=== PATIENT | male | born 1945 | race Caucasian/White ===

== ENCOUNTER 2016-06-16 08:21 | Outpatient (CLI) | payer MEDICARE, OTHER ==
[2016-06-16] VITALS (8 sets, daily range): BP systolic 120–144; BP diastolic 70–82
[~2016-06-16] VITALS: Ht 177.8 cm; Wt 96.2 kg
[~2016-06-16 08:21] MED LIST: ACET650T89 PO; ALEN35TA6 PO; ATORVASTATIN CA80 MG PO; CALC-431 PO; CHLO25TA PO; FINA5TAB4 PO; LEVO75TA5 PO; LISI-334 PO; [UNRECOGNIZED DRUG - CODE] PO
[2016-06-16] MEDS ORDERED: ASPI325T11 PO (08:49)
[2016-06-16] MEDS ORDERED: MULT1TAB6 PO (08:49)
[2016-06-16 08:50] LABS: BASO # 0.1 x10^3/uL (0.0-0.2); BASO % 1 % (0-3); EOS % 4 % (0-3); HEMATOCRIT 44.1 % (39.0-53.0); HEMOGLOBIN 14.6 g/dL (13.0-17.5); LYMPH # 1.7 x10^3/uL (1.0-4.8); LYMPH % 17 % (24-48); MEAN CORPUSCULAR HEMOGLOBIN 31 pg (25-35); MEAN CORPUSCULAR HGB CONC 33 g/dL (31-37); MEAN CORPUSCULAR VOLUME 92 fL (79-100); MONO % 8 % (0-9); NEUT % 71 % (31-73); PLATELET COUNT 267 x10^3/uL (140-400); RED BLOOD COUNT 4.79 x10^6/uL (4.30-5.70); RED CELL DISTRIBUTION WIDTH 13.9 % (11.5-14.5); WHITE BLOOD COUNT 9.7 x10^3/uL (4.0-11.0)
[2016-06-16] MEDS ORDERED: LIDOCAINE 1% / SOD BICARB 8.4% 20 ML VIAL. IJ ONE ×2 (08:50→10:00)
[2016-06-16 09:18] LABS: INR 1.1 (0.8-1.1); PROTHROMBIN TIME PATIENT 13.7 SEC (11.7-14.0)
[2016-06-16] MEDS ORDERED: FENTANYL PF 100 MCG/2 ML VIAL. ONE (09:29)
[2016-06-16] MEDS ORDERED: MIDAZOLAM HCL 2 MG/2 ML VIAL. ONE (09:29)
[2016-06-16] MEDS ORDERED: FENTANYL PF 100 MCG/2 ML VIAL. IV ONE (10:00)
[2016-06-16] MEDS ORDERED: MIDAZOLAM HCL 2 MG/2 ML VIAL. IV ONE (10:00)
--- NOTE | 2016-06-16 10:21 | PDOC ---
MODERATE SEDATION ASSESSMENT RISKS/ALTERNATIVES Risks/Alternatives Risks and alternatives of this type of sedation and procedure discussed with: RISK/ALTERNATIVES: Patient H & P ON CHART H & P H & P on chart and reviewed for co-morbid conditions and appropriate labs. H&P ON CHART: Yes STATUS PREG STATUS ASSESSED: N/A MEDS/ALLERGIES REVIEWED Meds/Allergies Reviewed Medications and Allergies including time and route of recently administered narcotics and sedatives. MEDS/ALLERGIES REVIEWED: Yes ASA RATING ASA RATING: II AIRWAY ASSESSMENT Airway Assessment Airway patency, oral function limitations, presence of caps, crowns, dentures, partials, and ability to extend neck assessed. AIRWAY ASSESSMENT: Yes MALLAMPATI SCORE MALLAMPATI SCORE: II PRE-SEDATION ASSESSMENT PRE-SEDATION ASSESSMENT: Yes SUSHIL BUTCHER MD Jun 16, 2016 10:21
--- NOTE | 2016-06-16 10:22 | PDOC1 ---
History and Physical Date of Procedure Date of Admission 06/16/16 Procedure Procedure Fluoro guided T11 vertebral body sclerotic lesion bx Indication Indication Densely sclerotic T11 vertebral body lesion---image guided bx requested by oncologist Past Medical History Past Medical History See Nursing Pre procedure PMH Past Surgical History Past Surgical History See Nursing Pre procedure PSH Current Medications Current Medications Current Medications Lidocaine/Sodium Bicarbonate (Buffered Lidocaine 1%) 20 ml STK-MED ONCE IJ ; Start 06/16/16 at 08:50; Stop 06/16/16 at 08:51; Status DC Fentanyl Citrate (Fentanyl 2ml Vial) 100 mcg STK-MED ONCE .ROUTE ; Start at 09:29; Stop 06/16/16 at 09:30; Status DC Midazolam HCl (Versed) 2 mg STK-MED ONCE .ROUTE ; Start 06/16/16 at 09:29; Stop 06/16/16 at 09:30; Status DC Lidocaine/Sodium Bicarbonate (Buffered Lidocaine 1%) 12 ml 1X ONCE IJ Last administered on 06/16/16 10:11; Start 06/16/16 at 10:00; Stop 06/16/16 at 10:01; Status DC Midazolam HCl (Versed) 2 mg 1X ONCE IV Last administered on 06/16/16 10:11; Start 06/16/16 at 10:00; Stop 06/16/16 at 10:01; Status DC Fentanyl Citrate (Fentanyl 2ml Vial) 100 mcg 1X ONCE IV Last administered on 10:12; Start 06/16/16 at 10:00; Stop 06/16/16 at 10:01; Status DC Active Scripts Active Reported Centrum Complete Multivit Tab (Multivitamin/Iron/Folic Acid) 1 Each Tablet 1 Each PO DAILY Aspirin Ec (Aspirin) 325 Mg Tablet.dr 1 Tab PO DAILY Vitamin C With Lissette Hips (Ascorbic Acid) 1,000 Mg Tablet 1,000 Mg PO DAILY Calcium 600 + Vit D 400 Caplet (Calcium Carbonate/Vitamin D3) 1 Each Tablet 1 Each PO BID Arthritis Pain (Acetaminophen) 650 Mg Tablet.er 650 Mg PO BID Chlorthalidone 25 Mg Tablet 25 Mg PO DAILY Finasteride 5 Mg Tablet 5 Mg PO DAILY Levothyroxine Sodium 75 Mcg Tablet 75 Mcg PO DAILYAC Alendronate Sodium 35 Mg Tablet 35 Mg PO WEEKLY Lisinopril 20 Mg Tablet 20 Mg PO DAILY Atorvastatin Calcium 80 Mg Tablet 80 Mg PO HS Allergies Allergies: Coded Allergies: fluoxetine (Verified Allergy, Severe, shakes, 05/11/15) Physical Exam Vital Signs Vital Signs Date Time Temp Pulse Resp B/P Pulse Ox O2 Delivery O2 Flow Rate FiO2 06/16/16 10:12 76 14 96 Nasal Cannula 2.0 06/16/16 09:19 98.2 120/71 98.2 Lungs: Clear to auscultation Heart: Regular rate Psych/Mental Status: Mental status NL Diagnostic Data/Imaging Images PMC CT chest from 05/14/16 reviewed Assessment Assessment Densely sclerotic T11 vertebral body lesion incidentally found during CT chest examination for possible lung lesion, in this patient with h/o multiple melanoma skin lesions. Problems: Plan Plan Fluoro guided bx densely sclerotic T11 vertebral body lesion, as requested by oncology SUSHIL BUTCHER MD Jun 16, 2016 10:22
--- NOTE | 2016-06-16 10:35 | PDOC ---
Exam Medical Receptionist Medical Assistant Medical Receptionist Medical Assistant Shirin Academic Adviser Academic Adviser Bob Garay Pre-Procedure Diagnosis Pre-Procedure Diagnosis Densely sclerotic T11 vertebral body lesion of ? activity. Image guided bx requested by oncologist. Post-Procedure Diagnosis Post-Procedure Diagnosis Same. Procedure Performed Procedure Performed Fluoro guided transpedicular T11 vertebral body sclerotic lesion bx Type of Anesthesia Type of Anesthesia Local + Mod sedation Estimated Blood Loss EBL: Minimal. Specimens Specimans 2 14G drill assisted core bxs were attempted---only small core samples were obtained due to markedly sclerotic and dense nature of the lesion--despite drill assisted technique, I was unable to traverse center of the lesion. Condition of Patient Condition of Patient Stable. No apparent complication. Disposition Disposition Home from OBS post recovery, if no problems. F/u with Dr Aguila. Full report to follow. SUSHIL BUTCHER MD Jun 16, 2016 10:35
--- NOTE | 2016-06-16 15:50 | RAD ---
Fluoroscopy guided drill assisted core biopsy of this lesion carotid lesion within T11 vertebral body Indication: 70-year-old male with history of multiple melanoma lesions. A CT chest examination was performed for a possible associated lung lesion, seen at chest x-ray. That CT study revealed the presence of a densely sclerotic lesion within the T11 vertebral body, centered slightly left of midline. Image guided biopsy of the sclerotic lesion has been requested by oncology. Fluoroscopy time: 9.9 minutes Kerma-area Product: 36 Gycm2 Moderate sedation: 26 minutes moderate sedation was provided utilizing a total of 2 mg Versed and 100 mcg fentanyl, IV. The patient was appropriately monitored by a qualified independent observer throughout the time of moderate sedation. Antibiotic: No prophylactic antibiotic was considered indicated for this biopsy procedure. Sterility: All elements of maximal sterile barrier technique, including the use of a cap, mask, sterile gown, sterile gloves, large sterile sheet, appropriate hand hygiene, and 2% chlorhexidine for cutaneous antisepsis (or acceptable alternative antiseptic per current guidelines) were utilized. Procedure: Informed consent was obtained from the patient. He was placed prone on the angiography table. Midline low thoracic spine was prepped and draped in the usual sterile fashion, utilizing all elements of maximal sterile barrier technique, as described above. Moderate sedation was provided with IV Versed and fentanyl. Using aseptic technique, local anesthesia, and direct fluoroscopic guidance, the 11-gauge needle from the [employer] power drill assisted bone biopsy system was carefully advanced through posterior cortex of the left T11 pedicle and was positioned adjacent to the densely sclerotic vertebral body lesion identified at CT. Subsequently, 2 core biopsies were attempted. Due to the markedly sclerotic and dense nature of the lesion, the biopsy needle could not successfully traverse center of the lesion, despite power assisted drill technique. 2 biopsy samples were submitted, which appear to incorporate margins of the sclerotic lesion--- hopefully the samples will prove diagnostic. A sterile dressing was applied at the biopsy puncture site. Patient tolerated the procedure well without apparent complication. Impression: Fluoroscopy guided biopsy of T11 vertebral body lesion, as described. This biopsy procedure was compromised due to the markedly dense and markedly sclerotic nature of the vertebral body lesion. Despite power drill assisted biopsy technique, center of the lesion could not be successfully traversed. 2 core biopsy samples, which hopefully incorporate diagnostic material from peripheral aspect of the sclerotic lesion, were submitted in formalin to pathology.
--- NOTE | 2016-06-17 13:13 | PATHOLOGY ---
PATHOLOGY REPORT * * * * * * * * FINAL DIAGNOSIS: Segments of bone, T-11 bone lesion biopsy: - Focal dense bony sclerosis. COMMENT: Sections of the T-11 biopsy reveal segments of bone. One of the biopsy segments shows dense sclerotic bony trabeculae. The remainder of this biopsy and the other two biopsies reveal normal bony trabeculae with accompanying hematopoietic marrow showing trilineage hematopoiesis. There is no evidence of a primary or metastatic neoplasm. (JPM:; d/t: 06/17/16) REPORT ELECTRONICALLY SIGNED BY: Mak Patel M.D. DATE/TIME: 06/17/2016 13:05 * * * * * * * * GROSS PATHOLOGY: The specimen is received in formalin labeled "Kali Hardy, T-11 biopsy". Received are three needle cores of light walters bone ranging in length from 0.5 to 1.0 cm, with each measuring 0.3 cm in diameter. The specimen is submitted entirely in cassette A1, following decalcification. (CAA; 06/16/2016) INITIAL CPT CODE(S): A; 92285, 99690 Professional services performed [place] [address] Technical services performed by [facility] at [address] [place] [address], [facility] [address], [place] [address]. SPECIMEN(S) RECEIVED: A.T11 bone lesion CLINICAL HISTORY: Densely sclerotic T11 bone lesion, history of melanoma, no history of prostate cancer PATIENT: KALI HARDY /AGE: 4 1945 (Age: 70) PATIENT #: [id number] ALT CASE #: SPECIMEN COLLECTION DATE: 06/16/2016 SPECIMEN RECEIVED DATE: 06/16/2016 [facility] - [address] [place] [address] - PHONE: [phone] * * * END OF REPORT * * *
== END 2016-06-16 12:05 | disposition home or self-care (01) ==
LOC: INTRAD 08:21
PROVIDERS: ATTEND Internal Medicine Hematology & Oncology
DX: G95.89 Other specified diseases of spinal cord (principal); E78.00 Pure hypercholesterolemia, unspecified; I10 Essential (primary) hypertension; E03.9 Hypothyroidism, unspecified; K76.9 Liver disease, unspecified
CPT/HCPCS: 20225; 36415; 76942; 85027; 85610; 88307; 88311; C1892; J2250; J3010

== ENCOUNTER → 2016-09-11 | Outpatient (CLI) | payer MEDICARE, OTHER ==
[2016-06-16 11:40] VITALS: BP 130/70
[~2016-09-11] MED LIST changes: +ASPI325T11 PO; +MULT1TAB6 PO
--- NOTE | 2016-09-11 16:35 | KCIC ---
PROCEDURE Two-view chest. HISTORY Melanoma, shortness of air, panic attack COMPARISON April 09, 2016 FINDINGS Two views the chest are submitted. Pericardial cardiac silhouette is stable. There is again fibrotic change left lung base. There is no lobar consolidation, pleural fluid, pneumothorax. There is again likely emphysema. There is opacity in the region of the T11 vertebral body as seen previously. There is multilevel thoracic spondylosis. IMPRESSION 1. There is no evidence of acute cardiopulmonary disease. There is suspected emphysema. 2. There is again nonspecific sclerotic lesion of the T11 vertebral body. Electronically signed by: Amos Cooley MD (Sep 11, 2016 16:33:46)
== END | disposition home or self-care (01) ==
LOC: KCIC 16:17
PROVIDERS: ATTEND Physician Assistant
DX: R06.02 Shortness of breath (principal); Z85.820 Personal history of malignant melanoma of skin
CPT/HCPCS: 71020

== ENCOUNTER → 2017-04-15 | Outpatient (CLI) | payer MEDICARE, OTHER ==
[2016-06-16 11:40] VITALS: BP 130/70
[~2017-04-15] MED LIST changes: +[UNRECOGNIZED DRUG - CODE] PO; -[UNRECOGNIZED DRUG - CODE] PO
--- NOTE | 2017-04-15 16:08 | KCIC ---
Examination: 2 views of the chest HISTORY: History of melanoma COMPARISON: 09/11/2016 FINDINGS: The cardiomediastinal silhouette grossly appears unremarkable. There is no acute infiltrate or visualized pneumothorax. Moderate degenerative changes thoracic spine. Sclerotic density projecting over the lower thoracic vertebral body best seen on the lateral view grossly similar to prior exam. IMPRESSION: No acute cardiopulmonary findings. Electronically signed by: Jos Wren MD (04/15/2017 4:05 PM) [id number]
== END | disposition home or self-care (01) ==
LOC: KCIC 15:38
PROVIDERS: ATTEND Physician Assistant
DX: C43.9 Malignant melanoma of skin, unspecified (principal); Z85.820 Personal history of malignant melanoma of skin
CPT/HCPCS: 71020

== ENCOUNTER → 2017-11-13 | Outpatient (CLI) | payer MEDICARE, OTHER | END | disposition home or self-care (01) | LOC: KCIC 16:26 | DX: C43.9 Malignant melanoma of skin, unspecified (principal) | CPT/HCPCS: 71046 ==

== ENCOUNTER 2018-06-26 05:36 | Emergency (ER) | payer MEDICARE ==
[~2018-06-26] VITALS: Ht 177.8 cm; Wt 92.5 kg
[~2018-06-26 05:36] MED LIST changes: -CHLO25TA PO; +CHLO25TA10 PO
--- NOTE | 2018-06-26 05:54 | PHYS DOC ---
Past Medical History Past Medical History: Cancer, High Cholesterol, Hypertension, Hypothyroid, Other Additional Past Medical Histor: osteoporosis Past Surgical History: Cancer Surgery, Tonsillectomy Additional Past Surgical Histo: skin cancer (200+ moles removed) Alcohol Use: None Drug Use: None Adult General Chief Complaint Chief Complaint: URINARY RETENTION HPI HPI 72-year-old old male presents with report of inability to urinate since 1700 last night. Patient reports having outpatient surgery to his neck and back for skin growth removal and received general anesthetic. Denies issues with urinary retention in the past. Patient does report history of benign state hypertrophy for which he is currently taking medication. Denies fever or chills. Denies nausea or vomiting. Review of Systems Review of Systems Constitutional: Denies fever or chills [] Eyes: Denies change in visual acuity, redness, or eye pain [] HENT: Denies nasal congestion or sore throat [] Respiratory: Denies cough or shortness of breath [] Cardiovascular: Denies chest pain or palpitations GI: Denies abdominal pain, nausea, vomiting, or diarrhea [] : Denies dysuria or hematuria; reports urinary retention Musculoskeletal: Denies back pain or joint pain [] Integument: Denies rash or skin lesions; reports recent surgery to neck and back Neurologic: Denies headache, focal weakness or sensory changes [] Complete systems were reviewed and found to be within normal limits, except as documented in this note. Allergies Allergies Allergies Coded Allergies Type Severity Reaction Last Updated Verified fluoxetine Allergy Severe shakes 05/11/15 Yes Physical Exam Physical Exam Constitutional: Well developed, well nourished, no acute distress, non-toxic appearance. [] HENT: Normocephalic, atraumatic, oropharynx moist Eyes: Conjunctiva normal, no discharge. [] Neck: Normal range of motion, no tenderness, supple Cardiovascular: Heart rate regular rhythm, no murmur [] Lungs & Thorax: Bilateral breath sounds clear to auscultation [] Abdomen: Soft, mild suprapubic tenderness Skin: Warm, dry, no erythema, no rash. [] Back: No tenderness, no CVA tenderness. [] Extremities: No tenderness, ROM intact, no edema. [] Neurologic: Alert and oriented X 3, normal motor function, normal sensory function, no focal deficits noted. [] Psychologic: Affect normal, judgement normal, mood normal. [] EKG EKG [] Radiology/Procedures Radiology/Procedures [] Course & Med Decision Making Course & Med Decision Making Patient presents with concern for possible urinary retention after general anesthetic yesterday. Mildly tender to palpation of suprapubic region. Bladder scan obtained with report of 999 mL's. Green catheter placed. UA ordered. Sign out given to Dr. Alfaro for further evaluation and final disposition. Discussed current findings and plan with patient and family, who acknowledge understanding and agreement. Dragon Disclaimer Dragon Disclaimer This electronic medical record was generated, in whole or in part, using a voice recognition dictation system. Departure Departure Impression: Primary Impression: Urinary retention Referrals: ELISEO CARRILLO MD (PCP) KARIS JIMENEZ DO Jun 26, 2018 05:54
[2018-06-26 06:11] LABS: BILIRUBIN,URINE NEGATIVE (NEG); CLARITY,URINE CLEAR; COLOR,URINE YELLOW; NITRITE,URINE NEGATIVE (NEG); PROTEIN,URINE NEGATIVE (NEG-TRACE); UROBILINOGEN,URINE 0.2 mg/dL (0.2 mg/dL)
[2018-06-26 06:16] LABS: HYALINE CASTS, URINE FEW /HPF; SQUAMOUS EPITHELIAL CELL,UR OCC /LPF
[2018-06-26 06:17] LABS: BACTERIA,URINE 0 /HPF (0-FEW); RBC,URINE OCC /HPF (0-2); WBC,URINE RARE /HPF (0-4)
[2018-06-26] MEDS ORDERED: TAMS0.4C97 PO (06:29)
[2018-06-26] MEDS ORDERED: TAMSULOSIN 0.4 MG CAP.ER.24H. PO ONE (07:00)
[2018-06-26 07:30] VITALS: BP 132/72
[2018-06-26] MEDS ORDERED: HYDR-3164 PO (07:33)
== END 2018-06-26 07:45 | disposition home or self-care (01) ==
LOC: ER 05:36
DX: R33.9 Retention of urine, unspecified (principal); E78.00 Pure hypercholesterolemia, unspecified; I10 Essential (primary) hypertension; E03.9 Hypothyroidism, unspecified; Z88.8 Allergy status to other drugs, medicaments and biological substances
CPT/HCPCS: 51702; 81001; 99284-25

== ENCOUNTER → 2018-09-22 | Outpatient (CLI) | payer MEDICARE ==
[~2018-09-22] MED LIST changes: +CITA10TA8 PO; +HYDR-3164 PO; +LORA0.5T96 PO; +TAMS0.4C97 PO
--- NOTE | 2018-09-22 15:24 | KCIC ---
AP and Lateral Views of the Chest 09/22/2018 12:00 AM Indication: History of melanoma. Annual physical. Comparison: chest radiograph November 13, 2017 Findings: No pneumothorax or pleural effusion is identified. Left basilar scarring likely in the lingula is similar to comparison study. No new focal consolidative infiltrate is seen. Heart size is normal. Hypertrophic bony lesions involving 2 posterior left ribs at the junction with the corresponding vertebral bodies are similar to comparison study. Bony thorax appears grossly intact. IMPRESSION: Stable radiographic appearance of the chest without evidence of acute cardiopulmonary process. Electronically signed by: Devin Doherty MD (09/22/2018 3:21 PM) [id number]
== END | disposition home or self-care (01) ==
LOC: KCIC 14:29
PROVIDERS: ATTEND Physician Assistant
DX: R91.8 Other nonspecific abnormal finding of lung field (principal); Z85.820 Personal history of malignant melanoma of skin
CPT/HCPCS: 71046

== ENCOUNTER 2018-11-09 17:36 | Inpatient (IN) | payer MEDICARE ==
[~2018-11-09] VITALS: Ht 177.8 cm; Wt 82.3 kg
[~2018-11-09 17:36] MED LIST changes: -CITA10TA8 PO; -LORA0.5T96 PO
[2018-11-09] MEDS ORDERED: IV NORMAL SALINE 500ML BAG 500 ML IV ONE (18:15)
[2018-11-09 18:31] LABS: BASO % 0 % (0-3); EOS # 0.1 x10^3/uL (0.0-0.7); EOS % 1 % (0-3); HEMATOCRIT 36.1 % (39.0-53.0); HEMOGLOBIN 12.4 g/dL (13.0-17.5); LYMPH # 0.8 x10^3/uL (1.0-4.8); LYMPH % 7 % (24-48); MEAN CORPUSCULAR HEMOGLOBIN 32 pg (25-35); MEAN CORPUSCULAR HGB CONC 34 g/dL (31-37); MEAN CORPUSCULAR VOLUME 92 fL (79-100); MONO # 1.3 x10^3/uL (0.0-1.1); MONO % 11 % (0-9); NEUT # 10.2 x10^3uL (1.8-7.7); NEUT % 82 % (31-73); PLATELET COUNT 337 x10^3/uL (140-400); RED BLOOD COUNT 3.93 x10^6/uL (4.30-5.70); RED CELL DISTRIBUTION WIDTH 14.5 % (11.5-14.5); WHITE BLOOD COUNT 12.5 x10^3/uL (4.0-11.0)
[2018-11-09 18:43] LABS: CALCIUM 8.9 mg/dL (8.5-10.1); CREATININE 1.6 mg/dL (0.7-1.3); GFR 42.3; POTASSIUM 3.4 mmol/L (3.5-5.1)
[2018-11-09 18:49] LABS: ALBUMIN 2.8 g/dL (3.4-5.0); ALBUMIN/GLOBULIN RATIO 0.5 (1.0-1.7); MAGNESIUM 2.1 mg/dL (1.8-2.4); TOTAL BILIRUBIN 0.4 mg/dL (0.2-1.0); TOTAL PROTEIN 7.9 g/dL (6.4-8.2)
[2018-11-09 18:55] LABS: SALIC < 2.8 mg/dL (2.8-20.0)
[2018-11-09 18:57] LABS: ACETAMIN < 2 mcg/ml (10-30); ETHANOL < 10 mg/dL (0-10)
[2018-11-09 20:50] VITALS: BP 143/77
[2018-11-09 23:00] VITALS: BP 136/76
--- NOTE | 2018-11-09 23:57 | PHYS DOC ---
Past Medical History Past Medical History: Cancer, Depression, High Cholesterol, Hypertension, Hypothyroid, Other Additional Past Medical Histor: osteoporosis,MELANOMA Past Surgical History: Cancer Surgery, Tonsillectomy Additional Past Surgical Histo: skin cancer (200+ moles removed)MELANOMA Alcohol Use: None Drug Use: None Adult General Chief Complaint Chief Complaint: SUICDAL IDEATION HPI HPI 73-year-old male presents to ER via POV with his neighbor Serge. Patient is t earful and anxious reporting he has had increased depression since June when his of 47 years . Patient states today the fillings overwhelmed him and he called his neighbor as he felt he needed someone to stay with him so his increased anxiety and depression wouldn't lead to him harming himself. Patient states he is having trouble with caring for himself at home. He reports he has had decreased appetite and approximate 20 pound weight loss since June. Patient states he has been fatigued denies any focal weakness. He denies chest pain, shortness of air, or abdominal pain. Patient denies any GI symptoms reporting he just has no appetite and so has been eating minimally reji ly. Patient reports he has been having regular bowel movements and urinating without symptoms. Patient states although he felt the need to seek someone to stay with him to prevent him from harming himself he would not carry through with any suicidal attempts. Patient denies active plan. Patient denies prior attempts. Patient denies having children or family members close by. He reports his neighbor Serge is involved with his medical decisions and is considered family. Patient has chronic bilateral lower extremity swelling denies acute change. Review of Systems Review of Systems Constitutional: Denies fever or chills. Reports generalized fatigue Eyes: Denies change in visual acuity, redness, or eye pain [] HENT: Denies nasal congestion or sore throat [] Respiratory: Denies cough or shortness of breath [] Cardiovascular: Denies CP GI: Denies abdominal pain, nausea, vomiting, bloody stools or diarrhea. Reports decreased appetite w/approx. 20# wt loss since Jun. : Denies dysuria or hematuria [] Musculoskeletal: Denies back/neck pain or joint pain. Reports bilat. LE swelling with no acute change Integument: Denies rash or skin lesions [] Neurologic: Denies headache, focal weakness or sensory changes [] Endocrine: Denies polyuria or polydipsia [] Psych: Reports increased depression/anxiety since in Jun. Reports felt he needed someone to stay with him so his depression didn't cause him to harm himself- denies active suicidal plan or prior attempts. States he doesn't feel he is suicidal- he just wanted help so his feelings didn't escalate to that All other systems were reviewed and found to be within normal limits, except as documented in this note. Current Medications Current Medications Current Medications Medications (Trade) Dose Ordered Sig/Christina Start Time Stop Time Status Last Admin Dose Admin Lorazepam (Ativan Inj) 0.5 mg 1X ONCE 11/09/18 18:15 11/09/18 18:16 DC Sodium Chloride 500 ml @ 500 mls/hr 1X ONCE 11/09/18 18:15 11/09/18 19:14 DC 11/09/18 19:45 500 MLS/HR Allergies Allergies Allergies Coded Allergies Type Severity Reaction Last Updated Verified fluoxetine Allergy Severe shakes 05/11/15 Yes Physical Exam Physical Exam Constitutional: Well developed, well nourished, tearful/anxious/restless, non- toxic appearance. Fatigued appearance HENT: Normocephalic, atraumatic, bilateral ears normal, mucous membranes pink/dry, nose normal. [] Eyes: Pupils equal, conjunctiva normal, no discharge. [] Neck: Normal range of motion, no tenderness, supple, no stridor. [] Cardiovascular: Heart rate regular rhythm, no murmur [] Lungs & Thorax: Bilateral breath sounds clear to auscultation- resp. equal/nonlabored Abdomen: Bowel sounds normal, soft, no tenderness, no masses, no pulsatile masses. [] Skin: Warm, dry, no erythema, no rash. [] Back: No tenderness, no CVA tenderness. [] Extremities: No tenderness, no cyanosis, no clubbing, ROM intact, 3+ nonpitting lower extrem. edema bilat. Neurologic: Alert and oriented X 3, normal motor function, normal sensory f unction, no focal deficits noted. [] Psychologic: Affect normal, judgement normal, mood anxious/restless- no uncontrollable behavior. Cooperative during exam. Current Patient Data Vital Signs Vital Signs Date Time Temp Pulse Resp B/P (MAP) Pulse Ox O2 Delivery O2 Flow Rate FiO2 11/09/18 18:52 82 139/64 (89) 96 11/09/18 17:40 98.6 33 Room Air 98.6 Lab Values Laboratory Tests Test 11/09/18 18:23 White Blood Count 12.5 x10^3/uL (4.0-11.0) H Red Blood Count 3.93 x10^6/uL (4.30-5.70) L Hemoglobin 12.4 g/dL (13.0-17.5) L Hematocrit 36.1 % (39.0-53.0) L Mean Corpuscular Volume 92 fL (79-100) Mean Corpuscular Hemoglobin 32 pg (25-35) Mean Corpuscular Hemoglobin Concent 34 g/dL (31-37) Red Cell Distribution Width 14.5 % (11.5-14.5) Platelet Count 337 x10^3/uL (140-400) Neutrophils (%) (Auto) 82 % (31-73) H Lymphocytes (%) (Auto) 7 % (24-48) L Monocytes (%) (Auto) 11 % (0-9) H Eosinophils (%) (Auto) 1 % (0-3) Basophils (%) (Auto) 0 % (0-3) Neutrophils # (Auto) 10.2 x10^3uL (1.8-7.7) H Lymphocytes # (Auto) 0.8 x10^3/uL (1.0-4.8) L Monocytes # (Auto) 1.3 x10^3/uL (0.0-1.1) H Eosinophils # (Auto) 0.1 x10^3/uL (0.0-0.7) Basophils # (Auto) 0.0 x10^3/uL (0.0-0.2) Sodium Level 140 mmol/L (136-145) Potassium Level 3.4 mmol/L (3.5-5.1) L Chloride Level 100 mmol/L (98-107) Carbon Dioxide Level 25 mmol/L (21-32) Anion Gap 15 (6-14) H Blood Urea Nitrogen 45 mg/dL (8-26) H Creatinine 1.6 mg/dL (0.7-1.3) H Estimated GFR (Cockcroft-Gault) 42.3 BUN/Creatinine Ratio 28 (6-20) H Glucose Level 158 mg/dL (70-99) H Calcium Level 8.9 mg/dL (8.5-10.1) Magnesium Level 2.1 mg/dL (1.8-2.4) Total Bilirubin 0.4 mg/dL (0.2-1.0) Aspartate Amino Transferase (AST) 74 U/L (15-37) H Alanine Aminotransferase (ALT) 143 U/L (16-63) H Alkaline Phosphatase 280 U/L (46-116) H Troponin I Quantitative < 0.017 ng/mL (0.000-0.055) Total Protein 7.9 g/dL (6.4-8.2) Albumin 2.8 g/dL (3.4-5.0) L Albumin/Globulin Ratio 0.5 (1.0-1.7) L Salicylates Level < 2.8 mg/dL (2.8-20.0) L Salicylate Last Dose Date Salicylate Last Dose Time Acetaminophen Level < 2 mcg/ml (10-30) L Acetaminophen Last Dose Date Acetaminophen Last Dose Time Ethyl Alcohol Level < 10 mg/dL (0-10) Laboratory Tests 11/09/18 18:23 Laboratory Tests 11/09/18 18:23 EKG EKG EKG obtained 11/09/18 at [address] Garcia Sinus rhythm Ltward axis Rate 94 Radiology/Procedures Radiology/Procedures [] Course & Med Decision Making Course & Med Decision Making Pertinent Labs and Imaging studies reviewed. (See chart for details) Pt was evaluated in the ER for complaints of increased depression. Patient had labs obtained as he reported a 20 pound weight loss since June with decreased appetite. Patient also had EKG obtained with no acute ST elevation or STEMI and troponin was negative. Patient had initially reported he called his neighbor as he felt like he needed to stay with someone because the anxiety and depression increased today and he didn't want his depression/anxiety to lead to him harming himself. Patient denies a suicidal plan and states he would never carry through with a suicide attempt. Patient states he just feels overwhelmed with depression since his and today he felt the need to seek help. Discussed admission with patient and he is agreeable with that plan. Discussed having case management meet with him as well as PAT consult. Patient's friend Serge remains at bedside. 1745: Spoke with Dr. Salas, hospitalist regarding pt's case/admit plan. Discussed patient's depression and feelings that he needed somebody to stay with him-patient has denied that he has any active suicidal plans or that he would carry through with a suicidal attempt. Will consult case management for assistance with placement as patient feels he is unable to care for himself at home. Will place consult for DIGNA heller. patient was provided with IV fluids and dose of Ativan and he did have improvement in anxiety. Patient was calm and cooperative while in the ER with no uncontrollable behavior. Patient had eleva kenney LFTs on his labs will repeat CMP in the morning. Dragon Disclaimer Dragon Disclaimer This electronic medical record was generated, in whole or in part, using a voice recognition dictation system. Departure Departure Impression: Primary Impression: Elevated LFTs Additional Impression: Depression Disposition: ADMITTED INPATIENT Condition: STABLE Referrals: ELISEO CARRILLO MD (PCP) Problem Qualifiers NAINA JAMES APRN Nov 09, 2018 23:57
[2018-11-10 03:00] VITALS: BP 117/69
--- NOTE | 2018-11-10 06:59 | EKG ---
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
[2018-11-10 07:00] VITALS: BP 135/74
[2018-11-10 09:25] LABS: BASO % 0 % (0-3); EOS # 0.1 x10^3/uL (0.0-0.7); EOS % 1 % (0-3); HEMATOCRIT 32.1 % (39.0-53.0); LYMPH # 0.7 x10^3/uL (1.0-4.8); LYMPH % 7 % (24-48); MEAN CORPUSCULAR HEMOGLOBIN 31 pg (25-35); MEAN CORPUSCULAR HGB CONC 34 g/dL (31-37); MEAN CORPUSCULAR VOLUME 92 fL (79-100); MONO # 1.3 x10^3/uL (0.0-1.1); MONO % 12 % (0-9); NEUT # 8.3 x10^3uL (1.8-7.7); NEUT % 80 % (31-73); PLATELET COUNT 289 x10^3/uL (140-400); RED CELL DISTRIBUTION WIDTH 14.8 % (11.5-14.5); WHITE BLOOD COUNT 10.4 x10^3/uL (4.0-11.0)
[2018-11-10 10:03] LABS: ALBUMIN 2.2 g/dL (3.4-5.0); ALBUMIN/GLOBULIN RATIO 0.5 (1.0-1.7); CALCIUM 8.4 mg/dL (8.5-10.1); CREATININE 1.3 mg/dL (0.7-1.3); GFR 53.8; POTASSIUM 3.4 mmol/L (3.5-5.1); TOTAL BILIRUBIN 0.6 mg/dL (0.2-1.0); TOTAL PROTEIN 6.4 g/dL (6.4-8.2)
[2018-11-10 11:00] VITALS: BP 141/79
[2018-11-10] MEDS ORDERED: POTASSIUM CHLORIDE 20 MEQ TABLET.ER. PO ONE (11:00)
[2018-11-10] MEDS ORDERED: LORazepam 0.5 MG TABLET PO PRN (11:00)
[2018-11-10] MEDS ORDERED: DEXTROSE 50% 25 GM / 50ML DISP.SYRIN. IV PRN (11:00)
[2018-11-10] MEDS ORDERED: HYDROcodone/APAP 5/325MG 1 TAB TABLET PO PRN (11:00)
--- NOTE | 2018-11-10 11:00 | NUR ---
Patient's plastic surgeon's nurse called. Per Dr. Nicolas, patient's surgery scheduled for Thursday11/15/18 will need to be rescheduled to at least one week later.
--- NOTE | 2018-11-10 11:01 | NUR ---
SW consulted for SNF/AL and psych placement. Chart reviewed and discussed with RN, Physician. Pt lives at home alone and has lost his of 49 years in June. Pt has had increased depression, anxiety ever since. ELDA phoned PAT team and left a voice mail to Abiel requesting a call back. Will continue to follow.
--- NOTE | 2018-11-10 11:16 | PDOC1 ---
History and Physical Date of Admission Date of Admission DATE: 11/10/18 TIME: 11:07 Identification/Chief Complaint Chief Complaint anxiety, feeling of impeding doom Source Source: Chart review, Patient History of Present Illness History of Present Illness Mr. Hardy rebeca 73-year-old male, known to me as I had cared for his , as she was put on hospice here a few months ago, He was admitted over night as he was unable to care for himself at home, was brought by his neighbor, Serge. Patient is tearful and anxious reporting he has had increased depression since June when his of 49 years . He has not been caring for himself, needs to be bathed, has poor nail care, is disheveled, and had been very functional a few month ago when I saw him. he feels unable to care for himself at home, and has stopped eating. > 20 lbs weight loss he complains of knee pain, feels he cannot walk. he has no plan for suicide, but states that he doesn't feel that he can survive. " I dont know how I'm going to make it" he mentions his and her a few times. Past Medical History Cardiovascular: CHF, HTN Musculoskeletal: low back pain, Osteoarthritis Infectious disease: No pertinent hx ENT: Sincusitis Renal/: No pertinent hx Endocrine: No pertinent hx Family History Family History: No Significant Social History Smoke: No ALCOHOL: none Current Medications Current Medications Current Medications Sodium Chloride 500 ml @ 500 mls/hr 1X ONCE IV Last administered on 11/09/18at 19:45; Start 11/09/18 at 18:15; Stop 11/09/18 at 19:14; Status DC Lorazepam (Ativan Inj) 0.5 mg 1X ONCE IV ; Start 11/09/18 at 18:15; Stop 11/09/18 at 18:16; Status DC Potassium Chloride (Klor-Con) 20 meq 1X ONCE PO ; Start 11/10/18 at 11:00; Stop 11/10/18 at 11:02; Status DC Potassium Chloride/Dextrose/ Sod Cl 1,000 ml @ 100 mls/hr Q10H IV ; Start 11/10/18 at 11:00 Lorazepam (Ativan) 0.5 mg PRN Q8HRS PRN PO ANXIETY / AGITATION; Start 11/10/18 at 11:00 Aspirin (Ecotrin) 325 mg DAILY PO ; Start 11/10/18 at 11:30 Chlorthalidone (Thalitone) 25 mg DAILY PO ; Start 11/10/18 at 11:30 Finasteride (Proscar) 5 mg DAILY PO ; Start 11/10/18 at 11:30 Acetaminophen/ Hydrocodone Bitart (Lortab 5/325) 1 tab PRN Q6HRS PRN PO PAIN; Start 11/10/18 at 11:00 Levothyroxine Sodium (Synthroid) 75 mcg DAILY06 PO ; Start 11/10/18 at 11:30 Lisinopril (Prinivil) 20 mg DAILY PO ; Start 11/10/18 at 11:30 Tamsulosin HCl (Flomax) 0.4 mg DAILY PO ; Start 11/10/18 at 11:30 Acetaminophen (Tylenol) 650 mg BID PO ; Start 11/10/18 at 11:30 Atorvastatin Calcium (Lipitor) 80 mg QHS PO ; Start 11/10/18 at 21:00 Insulin Human Lispro (HumaLOG) 0-7 UNITS TIDWMEALS SQ ; Start 11/10/18 at 12:00 Dextrose (Dextrose 50%-Water Syringe) 12.5 gm PRN Q15MIN PRN IV SEE COMMENTS; Start 11/10/18 at 11:00 Active Scripts Active Flomax (Tamsulosin Hcl) 0.4 Mg Cap.er.24h 0.4 Mg PO DAILY 14 Days Reported [place] 5-325 Tablet (Acetaminophen/Hydrocodone Bitart) 1 Each Tablet 1 Tab PO PRN Q6HRS PRN Centrum Complete Multivit Tab (Multivitamin/Iron/Folic Acid) 1 Each Tablet 1 Each PO DAILY Aspirin Ec (Aspirin) 325 Mg Tablet. 1 Tab PO DAILY Vitamin C With Lissette Hips (Ascorbic Acid) 1,000 Mg Tablet 1,000 Mg PO DAILY Calcium 600 + Vit D 400 Caplet (Calcium Carbonate/Vitamin D3) 1 Each Tablet 1 Each PO BID Arthritis Pain (Acetaminophen) 650 Mg Tablet.er 650 Mg PO BID Chlorthalidone (Chlorthalidone) 25 Mg Tablet 25 Mg PO DAILY Finasteride 5 Mg Tablet 5 Mg PO DAILY Levothyroxine Sodium 75 Mcg Tablet 75 Mcg PO DAILYAC Alendronate Sodium 35 Mg Tablet 35 Mg PO WEEKLY Lisinopril 20 Mg Tablet 20 Mg PO DAILY Atorvastatin Calcium 80 Mg Tablet 80 Mg PO HS Allergies Allergies: Coded Allergies: fluoxetine (Verified Allergy, Severe, shakes, 05/11/15) propofol (Verified Allergy, Intermediate, Inability to urinate, 11/10/18) bismuth subsalicylate (Verified Adverse Reaction, Mild, 11/10/18) Black Stools ROS General: YES: Fatigue, Malaise PSYCHOLOGICAL ROS: YES: Anxiety, Depression, Irritablity, Obsessive thoughts, Sleep disturbances Eyes: No Blurry vision, No Decreased vision, No Double vision, No Dry eyes, No Excessive tearing, No Eye Pain, No Itchy Eyes, No Loss of vision, No Photophobia, No Scotomata, No Uses contacts, No Uses glasses, No Other HEENT: YES: Heacaches; No: Visual Changes, Hearing change, Nasal congestion, Nasal discharge, Oral lesions, Sinus pain, Sore Throat, Epistaxis, Sneezing, Snoring, Tinnitus, Vertigo, Vocal changes, Other Respiratory: YES: Shortness of breath; No: Cough, Hemoptysis, Orthopnea, Pleuritic Pain, SOB with excertion, Sputum Changes, Stridor, Tachypnea, Wheezing, Other Cardiovascular: No Chest Pain, No Palpitations, No Orthopnea, No Paroxysmal Noc. Dyspnea, No Edema, No Lt Headedness, No Other Gastrointestinal: No Nausea, No Vomiting, No Abdominal Pain, No Diarrhea, No Constipation, No Melena, No Hematochezia, No Other Genitourinary: No Dysuria, No Frequency, No Incontinence, No Hematuria, No Retention, No Discharge, No Urgency, No Pain, No Flank Pain, No Other, No , No , No , No , No , No , No Musculoskeletal: Yes Gait Disturbance, Yes Joint Pain, Yes Joint Stiffness Neurological: Yes Gait Disturbance; No Behavorial Changes, No Bowel/Bladder ControlChng, No Confusion, No Dizziness, No Headaches, No Impaired Coord/balance, No Memory Loss, No Numbness/Tingling, No Seizures, No Speech Problems, No Tremors, No Visual Changes, No Weakness, No Other Skin: Yes Dry Skin; No Eczema, No Hair Changes, No Lumps, No Mole Changes, No Mottling, No Nail Changes, No Pruritus, No Rash, No Skin Lesion Changes, No Other, No Acne Physical Exam General: Alert, Cooperative, moderate distress (anxiety, RR 35) HEENT: Atraumatic, PERRLA Lungs: Clear to auscultation, Normal air movement Heart: S1S2, no murmurs Abdomen: Normal bowel sounds, Soft Extremities: No clubbing, Other (2+ LE edema and poor str. ) Skin: No rashes, Other (poor nail care and infection of nails,) Neuro: Normal tone, Sensation intact, Cranial nerves 3-12 NL Psych/Mental Status: Other (anxiety, tearful, apologetic, is struggling to control his respiratory rate, ) Vitals Vitals Vital Signs Date Time Temp Pulse Resp B/P (MAP) Pulse Ox O2 Delivery O2 Flow Rate FiO2 11/10/18 07:00 98.6 82 16 135/74 (94) 98 Nasal Cannula 1.5 98.6 Labs Labs Laboratory Tests Test 11/09/18 18:23 11/10/18 08:40 White Blood Count 12.5 x10^3/uL (4.0-11.0) 10.4 x10^3/uL (4.0-11.0) Red Blood Count 3.93 x10^6/uL (4.30-5.70) 3.50 x10^6/uL (4.30-5.70) Hemoglobin 12.4 g/dL (13.0-17.5) 11.0 g/dL (13.0-17.5) Hematocrit 36.1 % (39.0-53.0) 32.1 % (39.0-53.0) Mean Corpuscular Volume 92 fL (79-100) 92 fL (79-100) Mean Corpuscular Hemoglobin 32 pg (25-35) 31 pg (25-35) Mean Corpuscular Hemoglobin Concent 34 g/dL (31-37) 34 g/dL (31-37) Red Cell Distribution Width 14.5 % (11.5-14.5) 14.8 % (11.5-14.5) Platelet Count 337 x10^3/uL (140-400) 289 x10^3/uL (140-400) Neutrophils (%) (Auto) 82 % (31-73) 80 % (31-73) Lymphocytes (%) (Auto) 7 % (24-48) 7 % (24-48) Monocytes (%) (Auto) 11 % (0-9) 12 % (0-9) Eosinophils (%) (Auto) 1 % (0-3) 1 % (0-3) Basophils (%) (Auto) 0 % (0-3) 0 % (0-3) Neutrophils # (Auto) 10.2 x10^3uL (1.8-7.7) 8.3 x10^3uL (1.8-7.7) Lymphocytes # (Auto) 0.8 x10^3/uL (1.0-4.8) 0.7 x10^3/uL (1.0-4.8) Monocytes # (Auto) 1.3 x10^3/uL (0.0-1.1) 1.3 x10^3/uL (0.0-1.1) Eosinophils # (Auto) 0.1 x10^3/uL (0.0-0.7) 0.1 x10^3/uL (0.0-0.7) Basophils # (Auto) 0.0 x10^3/uL (0.0-0.2) 0.0 x10^3/uL (0.0-0.2) Sodium Level 140 mmol/L (136-145) 140 mmol/L (136-145) Potassium Level 3.4 mmol/L (3.5-5.1) 3.4 mmol/L (3.5-5.1) Chloride Level 100 mmol/L (98-107) 103 mmol/L (98-107) Carbon Dioxide Level 25 mmol/L (21-32) 24 mmol/L (21-32) Anion Gap 15 (6-14) 13 (6-14) Blood Urea Nitrogen 45 mg/dL (8-26) 30 mg/dL (8-26) Creatinine 1.6 mg/dL (0.7-1.3) 1.3 mg/dL (0.7-1.3) Estimated GFR (Cockcroft-Gault) 42.3 53.8 BUN/Creatinine Ratio 28 (6-20) 23 (6-20) Glucose Level 158 mg/dL (70-99) 174 mg/dL (70-99) Calcium Level 8.9 mg/dL (8.5-10.1) 8.4 mg/dL (8.5-10.1) Magnesium Level 2.1 mg/dL (1.8-2.4) Total Bilirubin 0.4 mg/dL (0.2-1.0) 0.6 mg/dL (0.2-1.0) Aspartate Amino Transf (AST/SGOT) 74 U/L (15-37) 57 U/L (15-37) Alanine Aminotransferase (ALT/SGPT) 143 U/L (16-63) 113 U/L (16-63) Alkaline Phosphatase 280 U/L (46-116) 258 U/L (46-116) Troponin I Quantitative < 0.017 ng/mL (0.000-0.055) Total Protein 7.9 g/dL (6.4-8.2) 6.4 g/dL (6.4-8.2) Albumin 2.8 g/dL (3.4-5.0) 2.2 g/dL (3.4-5.0) Albumin/Globulin Ratio 0.5 (1.0-1.7) 0.5 (1.0-1.7) Salicylates Level < 2.8 mg/dL (2.8-20.0) Salicylate Last Dose Date Salicylate Last Dose Time Acetaminophen Level < 2 mcg/ml (10-30) Acetaminophen Last Dose Date Acetaminophen Last Dose Time Ethyl Alcohol Level < 10 mg/dL (0-10) Laboratory Tests Test 11/09/18 18:23 11/10/18 08:40 White Blood Count 12.5 x10^3/uL (4.0-11.0) 10.4 x10^3/uL (4.0-11.0) Red Blood Count 3.93 x10^6/uL (4.30-5.70) 3.50 x10^6/uL (4.30-5.70) Hemoglobin 12.4 g/dL (13.0-17.5) 11.0 g/dL (13.0-17.5) Hematocrit 36.1 % (39.0-53.0) 32.1 % (39.0-53.0) Mean Corpuscular Volume 92 fL (79-100) 92 fL (79-100) Mean Corpuscular Hemoglobin 32 pg (25-35) 31 pg (25-35) Mean Corpuscular Hemoglobin Concent 34 g/dL (31-37) 34 g/dL (31-37) Red Cell Distribution Width 14.5 % (11.5-14.5) 14.8 % (11.5-14.5) Platelet Count 337 x10^3/uL (140-400) 289 x10^3/uL (140-400) Neutrophils (%) (Auto) 82 % (31-73) 80 % (31-73) Lymphocytes (%) (Auto) 7 % (24-48) 7 % (24-48) Monocytes (%) (Auto) 11 % (0-9) 12 % (0-9) Eosinophils (%) (Auto) 1 % (0-3) 1 % (0-3) Basophils (%) (Auto) 0 % (0-3) 0 % (0-3) Neutrophils # (Auto) 10.2 x10^3uL (1.8-7.7) 8.3 x10^3uL (1.8-7.7) Lymphocytes # (Auto) 0.8 x10^3/uL (1.0-4.8) 0.7 x10^3/uL (1.0-4.8) Monocytes # (Auto) 1.3 x10^3/uL (0.0-1.1) 1.3 x10^3/uL (0.0-1.1) Eosinophils # (Auto) 0.1 x10^3/uL (0.0-0.7) 0.1 x10^3/uL (0.0-0.7) Basophils # (Auto) 0.0 x10^3/uL (0.0-0.2) 0.0 x10^3/uL (0.0-0.2) Sodium Level 140 mmol/L (136-145) 140 mmol/L (136-145) Potassium Level 3.4 mmol/L (3.5-5.1) 3.4 mmol/L (3.5-5.1) Chloride Level 100 mmol/L (98-107) 103 mmol/L (98-107) Carbon Dioxide Level 25 mmol/L (21-32) 24 mmol/L (21-32) Anion Gap 15 (6-14) 13 (6-14) Blood Urea Nitrogen 45 mg/dL (8-26) 30 mg/dL (8-26) Creatinine 1.6 mg/dL (0.7-1.3) 1.3 mg/dL (0.7-1.3) Estimated GFR (Cockcroft-Gault) 42.3 53.8 BUN/Creatinine Ratio 28 (6-20) 23 (6-20) Glucose Level 158 mg/dL (70-99) 174 mg/dL (70-99) Calcium Level 8.9 mg/dL (8.5-10.1) 8.4 mg/dL (8.5-10.1) Magnesium Level 2.1 mg/dL (1.8-2.4) Total Bilirubin 0.4 mg/dL (0.2-1.0) 0.6 mg/dL (0.2-1.0) Aspartate Amino Transf (AST/SGOT) 74 U/L (15-37) 57 U/L (15-37) Alanine Aminotransferase (ALT/SGPT) 143 U/L (16-63) 113 U/L (16-63) Alkaline Phosphatase 280 U/L (46-116) 258 U/L (46-116) Troponin I Quantitative < 0.017 ng/mL (0.000-0.055) Total Protein 7.9 g/dL (6.4-8.2) 6.4 g/dL (6.4-8.2) Albumin 2.8 g/dL (3.4-5.0) 2.2 g/dL (3.4-5.0) Albumin/Globulin Ratio 0.5 (1.0-1.7) 0.5 (1.0-1.7) Salicylates Level < 2.8 mg/dL (2.8-20.0) Salicylate Last Dose Date Salicylate Last Dose Time Acetaminophen Level < 2 mcg/ml (10-30) Acetaminophen Last Dose Date Acetaminophen Last Dose Time Ethyl Alcohol Level < 10 mg/dL (0-10) VTE Prophylaxis Ordered VTE Prophylaxis Devices: No VTE Pharmacological Prophylaxi: Yes Assessment/Plan Assessment/Plan adjustment disorder, pronounced grief process, poorly controlled, now marked anxiety and severe depression with somatic component poor self care, dystrophic nails knee pain, OA, limited mobility, consult Physiatry weakness and debility, PT and OT htn with chronic diastolic CHF and LE edema transaminitis, check hepatitis panel hypokalemia severe malnutrition, consult nutrition, add supplements, all likely depression related acute vasomotor nephropathy, dehydration, IV fluid cont. EDUARD TAYLOR MD Nov 10, 2018 11:16
[2018-11-10] MEDS: FINASTERIDE 5 MG TABLET. PO SCH (11:21)
[2018-11-10] MEDS: ACETAMINOPHEN 325 MG TABLET. PO SCH ×2 (11:21→20:36)
[2018-11-10] MEDS: CHLORTHALIDONE 25 MG TABLET. PO SCH (11:21)
[2018-11-10] MEDS: ASPIRIN ENTERIC COATED 325 MG TABLET.DR. PO SCH (11:22)
[2018-11-10] MEDS: LEVOTHYROXINE 75 MCG TABLET PO SCH (11:22)
[2018-11-10] MEDS: LISINOPRIL 20 MG TABLET PO SCH (11:22)
[2018-11-10] MEDS: TAMSULOSIN 0.4 MG CAP.ER.24H. PO SCH (11:23)
[2018-11-10 11:25] LABS: BILIRUBIN,URINE NEGATIVE (NEG); CLARITY,URINE CLEAR; COLOR,URINE YELLOW; NITRITE,URINE NEGATIVE (NEG); PH,URINE 6.5; PROTEIN,URINE NEGATIVE (NEG-TRACE)
[2018-11-10 11:33] LABS: BARBITURATES NEG (NEG); BENZODIAZEPINES NEG (NEG); CANNABINOIDS NEG (NEG); COCAINE NEG (NEG); METHADONE NEG (NEG); OPIATES NEG (NEG); PHENCYCLIDINE NEG (NEG)
[2018-11-10 11:35] LABS: SQUAMOUS EPITHELIAL CELL,UR FEW /LPF
[2018-11-10] MEDS: POTASSIUM CL 20MEQ D5-0.45NACL 1,000 ML IV SCH ×2 (11:35→20:37)
[2018-11-10 11:36] LABS: BACTERIA,URINE 0 /HPF (0-FEW); RBC,URINE >40 /HPF (0-2); WBC,URINE OCC /HPF (0-4)
[2018-11-10 11:43] LABS: AMPHETAMINE/METHAMPHETAMINE NEG (NEG)
[2018-11-10] MEDS: INSULIN LISPRO 300 UNITS/3 ML INSULN.PEN. SQ SCH ×2 (11:43→17:00)
[2018-11-10] MEDS ORDERED: methylPREDNISolone ACETATE 40 MG/ML VIAL. INJ ONE ×2 (13:30)
[2018-11-10] MEDS ORDERED: BUPIVACAINE MPF 0.25% 10 ML VIAL. IJ ONE (13:30)
[2018-11-10 15:00] VITALS: BP 124/52
--- NOTE | 2018-11-10 15:12 | NUR ---
SW following pt. Pt seen by Jarett and is not SI, no hx of SI or active plan. Pt had reported increased depression and Jarett had discussed with pt about following up with PCP about starting medication management. 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 Jarett reported pt does not need Psych placement at this time. Discussed with Physician and will continue with SNU evaluation. SW will await for PT/OT recommendations. Will continue to follow
--- NOTE | 2018-11-10 15:52 | PDOC2 ---
CONSULT Date of Consult Date of Consult DATE: 11/10/18 TIME: 15:43 Reason for Consult Reason for Consult: dystrophic nails Referring Physician Referring Physician: Fidencio Identification/Chief Complaint Chief Complaint 73 year old male admitted for elevated LFTs and anxiety/depression states he told the ER he didn't want to live anymore. Patient relates his in June. he also complains of long symptomatic discolored thickened toenails painful in shoegear. Source Source: Patient History of Present Illness Reason for Visit: 73 year old male admitted for elevated LFTs and anxiety/depression states he told the ER he didn't want to live anymore. Patient relates his in June. he also complains of long symptomatic discolored thickened toenails painful in shoegear. Past Medical History Cardiovascular: CHF, HTN Musculoskeletal: low back pain, Osteoarthritis Infectious disease: No pertinent hx ENT: Sincusitis Renal/: No pertinent hx Endocrine: No pertinent hx Past Surgical History Past Surgical History: No pertinent history Family History Family History: No Significant Social History No ALCOHOL: none Current Medications Current Medications Current Medications Sodium Chloride 500 ml @ 500 mls/hr 1X ONCE IV Last administered on 11/09/18at 19:45; Start 11/09/18 at 18:15; Stop 11/09/18 at 19:14; Status DC Lorazepam (Ativan Inj) 0.5 mg 1X ONCE IV ; Start 11/09/18 at 18:15; Stop 11/09/18 at 18:16; Status DC Potassium Chloride (Klor-Con) 20 meq 1X ONCE PO Last administered on 11/10/18at 11:22; Start 11/10/18 at 11:00; Stop 11/10/18 at 11:02; Status DC Potassium Chloride/Dextrose/ Sod Cl 1,000 ml @ 100 mls/hr Q10H IV Last administered on 11/10/18at 11:35; Start 11/10/18 at 11:00 Lorazepam (Ativan) 0.5 mg PRN Q8HRS PRN PO ANXIETY / AGITATION Last administered on 11/10/18at 11:22; Start 11/10/18 at 11:00 Aspirin (Ecotrin) 325 mg DAILY PO Last administered on 11/10/18at 11:22; Start 11/10/18 at 11:30 Chlorthalidone (Thalitone) 25 mg DAILY PO Last administered on 11/10/18 11:21; Start 11/10/18 at 11:30 Finasteride (Proscar) 5 mg DAILY PO Last administered on 11/10/18 11:21; Start 11/10/18 at 11:30 Acetaminophen/ Hydrocodone Bitart (Lortab 5/325) 1 tab PRN Q6HRS PRN PO PAIN; Start 11/10/18 at 11:00 Levothyroxine Sodium (Synthroid) 75 mcg DAILY06 PO Last administered on 11/10/18 11:22; Start 11/10/18 at 11:30 Lisinopril (Prinivil) 20 mg DAILY PO Last administered on 11/10/18 11:22; Start 11/10/18 at 11:30 Tamsulosin HCl (Flomax) 0.4 mg DAILY PO Last administered on 11/10/18 11:23; Start 11/10/18 at 11:30 Acetaminophen (Tylenol) 650 mg BID PO Last administered on 11/10/18 11:21; Start 11/10/18 at 11:30 Atorvastatin Calcium (Lipitor) 80 mg QHS PO ; Start 11/10/18 at 21:00 Insulin Human Lispro (HumaLOG) 0-7 UNITS TIDWMEALS SQ ; Start 11/10/18 at 12:00 Dextrose (Dextrose 50%-Water Syringe) 12.5 gm PRN Q15MIN PRN IV SEE COMMENTS; Start 11/10/18 at 11:00 Quetiapine Fumarate (SEROquel) 25 mg HS PO ; Start 11/10/18 at 21:00 Enoxaparin Sodium (Lovenox Per Pharmacy Prophylaxis Dosing) 1 each PRN DAILY PRN MC SEE COMMENTS; Start 11/10/18 at 11:15; Stop 11/10/18 at 12:14; Status DC Enoxaparin Sodium (Lovenox 40mg Syringe) 40 mg Q24H SQ ; Start 11/10/18 at 16:00 Methylprednisolone Acetate (DEPO-Medrol 40MG VIAL) 40 mg 1X ONCE INJ ; Start 11/10/18 at 13:30; Stop 11/10/18 at 13:31; Status DC Methylprednisolone Acetate (DEPO-Medrol 40MG VIAL) 40 mg 1X ONCE INJ ; Start 11/10/18 at 13:30; Stop 11/10/18 at 13:31; Status DC Bupivacaine HCl (Sensorcaine-Mpf 0.25%) 10 ml 1X ONCE IJ ; Start 11/10/18 at 13:30; Stop 11/10/18 at 13:31; Status DC Active Scripts Active Flomax (Tamsulosin Hcl) 0.4 Mg Cap.er.24h 0.4 Mg PO DAILY 14 Days Reported [place] 5-325 Tablet (Acetaminophen/Hydrocodone Bitart) 1 Each Tablet 1 Tab PO PRN Q6HRS PRN Centrum Complete Multivit Tab (Multivitamin/Iron/Folic Acid) 1 Each Tablet 1 Each PO DAILY Aspirin Ec (Aspirin) 325 Mg Tablet.dr 1 Tab PO DAILY Vitamin C With Lissette Hips (Ascorbic Acid) 1,000 Mg Tablet 1,000 Mg PO DAILY Calcium 600 + Vit D 400 Caplet (Calcium Carbonate/Vitamin D3) 1 Each Tablet 1 Each PO BID Arthritis Pain (Acetaminophen) 650 Mg Tablet.er 650 Mg PO BID Chlorthalidone (Chlorthalidone) 25 Mg Tablet 25 Mg PO DAILY Finasteride 5 Mg Tablet 5 Mg PO DAILY Levothyroxine Sodium 75 Mcg Tablet 75 Mcg PO DAILYAC Alendronate Sodium 35 Mg Tablet 35 Mg PO WEEKLY Lisinopril 20 Mg Tablet 20 Mg PO DAILY Atorvastatin Calcium 80 Mg Tablet 80 Mg PO HS Allergies Allergies: Coded Allergies: fluoxetine (Verified Allergy, Severe, shakes, 05/11/15) propofol (Verified Allergy, Intermediate, Inability to urinate, 11/10/18) bismuth subsalicylate (Verified Adverse Reaction, Mild, 11/10/18) Black Stools ROS General: YES: Fatigue; No: Chills, Night Sweats, Malaise, Appetite, Other PSYCHOLOGICAL ROS: YES: Anxiety, Depression, Suicidal ideation Eyes: No Blurry vision, No Decreased vision, No Double vision, No Dry eyes, No Excessive tearing, No Eye Pain, No Itchy Eyes, No Loss of vision, No Photophobia, No Scotomata, No Uses contacts, No Uses glasses, No Other HEENT: No: Heacaches, Visual Changes, Hearing change, Nasal congestion, Nasal discharge, Oral lesions, Sinus pain, Sore Throat, Epistaxis, Sneezing, Snoring, Tinnitus, Vertigo, Vocal changes, Other ALLERGY AND IMMUNOLOGY: No: Hives, Insect Bite Sensitivity, Itchy/Watery Eyes, Nasal Congestion, Post Nasal Drip, Seasonal Allergies, Other Hematological and Lymphatic: No: Bleeding Problems, Blood Clots, Blood Transfusions, Brusing, Night Sweats, Pallor, Swollen Lymph Nodes, Other ENDOCRINE: No: Breast Changes, Galactorrhea, Hair Pattern Changes, Hot Flashes, Malaise/lethargy, Mood Swings, Palpitations, Polydipsia/polyuria, Skin Changes, Temperature Intolerance, Unexpected Weight Changes, Other Breast: No New/Changing Breast Lumps, No Nipple changes, No Nipple discharge, No Other Respiratory: YES: SOB with excertion; No: Cough, Hemoptysis, Orthopnea, Pleuritic Pain, Shortness of breath, Sputum Changes, Stridor, Tachypnea, Wheezing, Other Cardiovascular: No Chest Pain, No Palpitations, No Orthopnea, No Paroxysmal Noc. Dyspnea, No Edema, No Lt Headedness, No Other Gastrointestinal: No Nausea, No Vomiting, No Abdominal Pain, No Diarrhea, No Constipation, No Melena, No Hematochezia, No Other Musculoskeletal: Yes Gait Disturbance, Yes Joint Pain, Yes Joint Stiffness, Yes Muscular Weakness Skin: Yes Dry Skin, Yes Nail Changes Physical Exam Physical Exam lower extremity: Skin is warm, xerotic, atrophic decreased turgor. hair is absent from feet. nails are long x 10 with onycholysis and yellow discoloration. no discontinuity of skin to feet. no cellulitis no calor. no fluctuance. DP and PT non palpable +2 pitting edema to bilateral lower extremity. no hair is present to feet. CFT is 3 sec to all digits. Sensation diminished to sharp dull and light touch. dorsally contracted digits 2-5 bilateral. muscle strength is 4/5. unsteady gait. General: Alert, Oriented X3, No acute distress Vitals VITALS Vital Signs Date Time Temp Pulse Resp B/P (MAP) Pulse Ox O2 Delivery O2 Flow Rate FiO2 11/10/18 15:00 99.8 88 18 124/52 (76) 96 Room Air 99.8 11/10/18 07:00 1.5 Labs Labs Laboratory Tests Test 11/09/18 18:23 11/10/18 08:40 11/10/18 11:14 11/10/18 11:43 White Blood Count 12.5 x10^3/uL (4.0-11.0) 10.4 x10^3/uL (4.0-11.0) Red Blood Count 3.93 x10^6/uL (4.30-5.70) 3.50 x10^6/uL (4.30-5.70) Hemoglobin 12.4 g/dL (13.0-17.5) 11.0 g/dL (13.0-17.5) Hematocrit 36.1 % (39.0-53.0) 32.1 % (39.0-53.0) Mean Corpuscular Volume 92 fL (79-100) 92 fL (79-100) Mean Corpuscular Hemoglobin 32 pg (25-35) 31 pg (25-35) Mean Corpuscular Hemoglobin Concent 34 g/dL (31-37) 34 g/dL (31-37) Red Cell Distribution Width 14.5 % (11.5-14.5) 14.8 % (11.5-14.5) Platelet Count 337 x10^3/uL (140-400) 289 x10^3/uL (140-400) Neutrophils (%) (Auto) 82 % (31-73) 80 % (31-73) Lymphocytes (%) (Auto) 7 % (24-48) 7 % (24-48) Monocytes (%) (Auto) 11 % (0-9) 12 % (0-9) Eosinophils (%) (Auto) 1 % (0-3) 1 % (0-3) Basophils (%) (Auto) 0 % (0-3) 0 % (0-3) Neutrophils # (Auto) 10.2 x10^3uL (1.8-7.7) 8.3 x10^3uL (1.8-7.7) Lymphocytes # (Auto) 0.8 x10^3/uL (1.0-4.8) 0.7 x10^3/uL (1.0-4.8) Monocytes # (Auto) 1.3 x10^3/uL (0.0-1.1) 1.3 x10^3/uL (0.0-1.1) Eosinophils # (Auto) 0.1 x10^3/uL (0.0-0.7) 0.1 x10^3/uL (0.0-0.7) Basophils # (Auto) 0.0 x10^3/uL (0.0-0.2) 0.0 x10^3/uL (0.0-0.2) Sodium Level 140 mmol/L (136-145) 140 mmol/L (136-145) Potassium Level 3.4 mmol/L (3.5-5.1) 3.4 mmol/L (3.5-5.1) Chloride Level 100 mmol/L (98-107) 103 mmol/L (98-107) Carbon Dioxide Level 25 mmol/L (21-32) 24 mmol/L (21-32) Anion Gap 15 (6-14) 13 (6-14) Blood Urea Nitrogen 45 mg/dL (8-26) 30 mg/dL (8-26) Creatinine 1.6 mg/dL (0.7-1.3) 1.3 mg/dL (0.7-1.3) Estimated GFR (Cockcroft-Gault) 42.3 53.8 BUN/Creatinine Ratio 28 (6-20) 23 (6-20) Glucose Level 158 mg/dL (70-99) 174 mg/dL (70-99) Calcium Level 8.9 mg/dL (8.5-10.1) 8.4 mg/dL (8.5-10.1) Magnesium Level 2.1 mg/dL (1.8-2.4) Total Bilirubin 0.4 mg/dL (0.2-1.0) 0.6 mg/dL (0.2-1.0) Aspartate Amino Transf (AST/SGOT) 74 U/L (15-37) 57 U/L (15-37) Alanine Aminotransferase (ALT/SGPT) 143 U/L (16-63) 113 U/L (16-63) Alkaline Phosphatase 280 U/L (46-116) 258 U/L (46-116) Troponin I Quantitative < 0.017 ng/mL (0.000-0.055) Total Protein 7.9 g/dL (6.4-8.2) 6.4 g/dL (6.4-8.2) Albumin 2.8 g/dL (3.4-5.0) 2.2 g/dL (3.4-5.0) Albumin/Globulin Ratio 0.5 (1.0-1.7) 0.5 (1.0-1.7) Salicylates Level < 2.8 mg/dL (2.8-20.0) Salicylate Last Dose Date Salicylate Last Dose Time Acetaminophen Level < 2 mcg/ml (10-30) Acetaminophen Last Dose Date Acetaminophen Last Dose Time Ethyl Alcohol Level < 10 mg/dL (0-10) Hepatitis A IgM Antibody Nonreactive (Nonreactive) Hepatitis B Surface Antigen Nonreactive (Nonreactive) Hepatitis B Core IgM Antibody Nonreactive (Nonreactive) Hepatitis C IgG Antibody Nonreactive (Nonreactive) Urine Collection Type Unknown Urine Color Yellow Urine Clarity Clear Urine pH 6.5 Urine Specific [place] 1.015 Urine Protein Negative mg/dL (NEG-TRACE) Urine Glucose (UA) Negative mg/dL (NEG) Urine Ketones (Stick) Negative mg/dL (NEG) Urine Blood Large (NEG) Urine Nitrite Negative (NEG) Urine Bilirubin Negative (NEG) Urine Urobilinogen Dipstick 1.0 mg/dL (0.2 mg/dL) Urine Leukocyte Esterase Negative (NEG) Urine RBC >40 /HPF (0-2) Urine WBC Occ /HPF (0-4) Urine Squamous Epithelial Cells Few /LPF Urine Bacteria 0 /HPF (0-FEW) Urine Opiates Screen Neg (NEG) Urine Methadone Screen Neg (NEG) Urine Barbiturates Neg (NEG) Urine Phencyclidine Screen Neg (NEG) Urine Amphetamine/Methamphetamine Neg (NEG) Urine Benzodiazepines Screen Neg (NEG) Urine Cocaine Screen Neg (NEG) Urine Cannabinoids Screen Neg (NEG) Urine Ethyl Alcohol Neg (NEG) Glucose (Fingerstick) 142 mg/dL (70-99) Laboratory Tests Test 11/09/18 18:23 11/10/18 08:40 11/10/18 11:14 11/10/18 11:43 White Blood Count 12.5 x10^3/uL (4.0-11.0) 10.4 x10^3/uL (4.0-11.0) Red Blood Count 3.93 x10^6/uL (4.30-5.70) 3.50 x10^6/uL (4.30-5.70) Hemoglobin 12.4 g/dL (13.0-17.5) 11.0 g/dL (13.0-17.5) Hematocrit 36.1 % (39.0-53.0) 32.1 % (39.0-53.0) Mean Corpuscular Volume 92 fL (79-100) 92 fL (79-100) Mean Corpuscular Hemoglobin 32 pg (25-35) 31 pg (25-35) Mean Corpuscular Hemoglobin Concent 34 g/dL (31-37) 34 g/dL (31-37) Red Cell Distribution Width 14.5 % (11.5-14.5) 14.8 % (11.5-14.5) Platelet Count 337 x10^3/uL (140-400) 289 x10^3/uL (140-400) Neutrophils (%) (Auto) 82 % (31-73) 80 % (31-73) Lymphocytes (%) (Auto) 7 % (24-48) 7 % (24-48) Monocytes (%) (Auto) 11 % (0-9) 12 % (0-9) Eosinophils (%) (Auto) 1 % (0-3) 1 % (0-3) Basophils (%) (Auto) 0 % (0-3) 0 % (0-3) Neutrophils # (Auto) 10.2 x10^3uL (1.8-7.7) 8.3 x10^3uL (1.8-7.7) Lymphocytes # (Auto) 0.8 x10^3/uL (1.0-4.8) 0.7 x10^3/uL (1.0-4.8) Monocytes # (Auto) 1.3 x10^3/uL (0.0-1.1) 1.3 x10^3/uL (0.0-1.1) Eosinophils # (Auto) 0.1 x10^3/uL (0.0-0.7) 0.1 x10^3/uL (0.0-0.7) Basophils # (Auto) 0.0 x10^3/uL (0.0-0.2) 0.0 x10^3/uL (0.0-0.2) Sodium Level 140 mmol/L (136-145) 140 mmol/L (136-145) Potassium Level 3.4 mmol/L (3.5-5.1) 3.4 mmol/L (3.5-5.1) Chloride Level 100 mmol/L (98-107) 103 mmol/L (98-107) Carbon Dioxide Level 25 mmol/L (21-32) 24 mmol/L (21-32) Anion Gap 15 (6-14) 13 (6-14) Blood Urea Nitrogen 45 mg/dL (8-26) 30 mg/dL (8-26) Creatinine 1.6 mg/dL (0.7-1.3) 1.3 mg/dL (0.7-1.3) Estimated GFR (Cockcroft-Gault) 42.3 53.8 BUN/Creatinine Ratio 28 (6-20) 23 (6-20) Glucose Level 158 mg/dL (70-99) 174 mg/dL (70-99) Calcium Level 8.9 mg/dL (8.5-10.1) 8.4 mg/dL (8.5-10.1) Magnesium Level 2.1 mg/dL (1.8-2.4) Total Bilirubin 0.4 mg/dL (0.2-1.0) 0.6 mg/dL (0.2-1.0) Aspartate Amino Transf (AST/SGOT) 74 U/L (15-37) 57 U/L (15-37) Alanine Aminotransferase (ALT/SGPT) 143 U/L (16-63) 113 U/L (16-63) Alkaline Phosphatase 280 U/L (46-116) 258 U/L (46-116) Troponin I Quantitative < 0.017 ng/mL (0.000-0.055) Total Protein 7.9 g/dL (6.4-8.2) 6.4 g/dL (6.4-8.2) Albumin 2.8 g/dL (3.4-5.0) 2.2 g/dL (3.4-5.0) Albumin/Globulin Ratio 0.5 (1.0-1.7) 0.5 (1.0-1.7) Salicylates Level < 2.8 mg/dL (2.8-20.0) Salicylate Last Dose Date Salicylate Last Dose Time Acetaminophen Level < 2 mcg/ml (10-30) Acetaminophen Last Dose Date Acetaminophen Last Dose Time Ethyl Alcohol Level < 10 mg/dL (0-10) Hepatitis A IgM Antibody Nonreactive (Nonreactive) Hepatitis B Surface Antigen Nonreactive (Nonreactive) Hepatitis B Core IgM Antibody Nonreactive (Nonreactive) Hepatitis C IgG Antibody Nonreactive (Nonreactive) Urine Collection Type Unknown Urine Color Yellow Urine Clarity Clear Urine pH 6.5 Urine Specific [place] 1.015 Urine Protein Negative mg/dL (NEG-TRACE) Urine Glucose (UA) Negative mg/dL (NEG) Urine Ketones (Stick) Negative mg/dL (NEG) Urine Blood Large (NEG) Urine Nitrite Negative (NEG) Urine Bilirubin Negative (NEG) Urine Urobilinogen Dipstick 1.0 mg/dL (0.2 mg/dL) Urine Leukocyte Esterase Negative (NEG) Urine RBC >40 /HPF (0-2) Urine WBC Occ /HPF (0-4) Urine Squamous Epithelial Cells Few /LPF Urine Bacteria 0 /HPF (0-FEW) Urine Opiates Screen Neg (NEG) Urine Methadone Screen Neg (NEG) Urine Barbiturates Neg (NEG) Urine Phencyclidine Screen Neg (NEG) Urine Amphetamine/Methamphetamine Neg (NEG) Urine Benzodiazepines Screen Neg (NEG) Urine Cocaine Screen Neg (NEG) Urine Cannabinoids Screen Neg (NEG) Urine Ethyl Alcohol Neg (NEG) Glucose (Fingerstick) 142 mg/dL (70-99) Assessment/Plan Assessment/Plan 73 year old male with diffuse peripheral vascular disease noted on physical exam and onychauxis, onychomycosis, onycholysis, xerosis, and lymphedema -Symptomatic nails debrided x 10 without incident. -Recommend begin exfolliative lotion daily for xerosis -Begin kenney hose and elevatation as well as exercise monitor salt intake for lymphedema -Discussed proper foot hygiene -Follow up on an as needed basis -Will signs off SALIMA LAW DPM Nov 10, 2018 15:52
--- NOTE | 2018-11-10 16:57 | RAD ---
AP standing view of both knees Clinical indications: Painful DJD of both knees Right knee: Severe joint space narrowing and prominent spurring and subchondral sclerosis of the medial tibiofemoral joint compartment is seen. There is moderate joint space narrowing and spurring of the lateral tibial femoral joint compartment with mild subchondral sclerosis. There is a genu varus deformity. No acute fracture or dislocation or lytic process is seen. Left knee: There is severe joint space narrowing with prominent spurring and subchondral sclerosis of the medial tibial femoral joint compartment. There is moderate joint space narrowing with moderate spurring and mild subchondral sclerosis of the lateral tibial femoral joint compartment. Loose bodies are evident just lateral to the superior pole of the patella. Genu varus deformity is evident. No acute fracture or dislocation or lytic process is seen IMPRESSION: Primary degenerative osteoarthritis of the medial and lateral tibial femoral joint compartments of both knees especially involving the medial compartment of both knees with [id number] interface. Electronically signed by: Catracho Canela MD (11/10/2018 4:54 PM) [id number]
[2018-11-10] MEDS: ENOXAPARIN 40 MG/0.4 ML SYRINGE. SQ SCH (17:27)
--- NOTE | 2018-11-10 17:55 | PDOC2 ---
PALLIATIVE CARE Palliative Care Note Palliative Care Consult requested by Dr. Nicolas to address plan of care. Medical Assessment /Plan per medical record. Assessment/Plan adjustment disorder, pronounced grief process, poorly controlled, now marked anxiety and severe depression with somatic component poor self care, dystrophic nails knee pain, OA, limited mobility, consult Physiatry weakness and debility, PT and OT htn with chronic diastolic CHF and LE edema transaminitis, check hepatitis panel hypokalemia severe malnutrition, consult nutrition, add supplements, all likely depression related acute vasomotor nephropathy, dehydration, IV fluid cont. Patient sitting up in chair. States he had his knees injected to day. Worked with PT today and pain feels better. Copy of x-ray shared. Patient know to PC --assisted with 's care. Patient shared that is very depressed and anxious. Has lost 20lbs. since June. 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 Is working on consolidating his finances for easier management. He is participating in grief support group x 2 from Hospice. Attends restorationist support with [facility] "They have become my family" He has not been taking any antidepressants. Asked that his DPOA not be called because he is too busy the next couple of days. Is agreeable to working on a plan so that he can feel better emotionally and physically. Confirmed Code Status; DNR/DNI. Will continue to follow and support. DIGNA PORTILLO Nov 10, 2018 17:55
[2018-11-10 19:00] VITALS: BP 125/76
--- NOTE | 2018-11-10 20:08 | NUR ---
Inserted a new IV 22 Gauge in patient's Right Hand secured with transparent dressing and tape, with no complications, blood return, flush, and fluids infusing, due to patient's other IV became accidently removed by itself and fluids were leaking.
[2018-11-10] MEDS: ATORVASTATIN CALCIUM 40 MG TABLET. PO SCH (20:36)
[2018-11-10] MEDS: QUEtiapine 25 MG TABLET. PO SCH (20:36)
[2018-11-10] MEDS ORDERED: INSULIN LISPRO 300 UNITS/3 ML INSULN.PEN. SQ ONE (22:00)
[2018-11-10 22:41] VITALS: BP 154/97
[2018-11-11 02:00] VITALS: BP 119/64
[2018-11-11 06:02] LABS: BASO % 0 % (0-3); EOS % 0 % (0-3); HEMATOCRIT 33.7 % (39.0-53.0); HEMOGLOBIN 11.4 g/dL (13.0-17.5); LYMPH # 0.5 x10^3/uL (1.0-4.8); LYMPH % 4 % (24-48); MEAN CORPUSCULAR HEMOGLOBIN 31 pg (25-35); MEAN CORPUSCULAR HGB CONC 34 g/dL (31-37); MEAN CORPUSCULAR VOLUME 92 fL (79-100); MONO # 0.5 x10^3/uL (0.0-1.1); MONO % 4 % (0-9); NEUT % 93 % (31-73); PLATELET COUNT 333 x10^3/uL (140-400); RED BLOOD COUNT 3.65 x10^6/uL (4.30-5.70); RED CELL DISTRIBUTION WIDTH 14.9 % (11.5-14.5)
[2018-11-11] MEDS: POTASSIUM CL 20MEQ D5-0.45NACL 1,000 ML IV SCH ×2 (06:21→15:45)
[2018-11-11] MEDS: LEVOTHYROXINE 75 MCG TABLET PO SCH (06:21)
[2018-11-11 06:39] LABS: ALBUMIN 2.2 g/dL (3.4-5.0); ALBUMIN/GLOBULIN RATIO 0.5 (1.0-1.7); CREATININE 1.2 mg/dL (0.7-1.3); POTASSIUM 4.3 mmol/L (3.5-5.1); TOTAL BILIRUBIN 0.4 mg/dL (0.2-1.0)
[2018-11-11 07:00] VITALS: BP 148/77
[2018-11-11 08:56] LABS: % BANDS 2 % (0-9); % LYMPHS 7 % (24-48); % MONOS 3 % (0-10); % SEGS 88 % (35-66)
[2018-11-11 08:57] LABS: HYPERSEGS PRESENT; PLT ESTIMATE ADEQUATE (ADEQUATE)
[2018-11-11] MEDS: ASPIRIN ENTERIC COATED 325 MG TABLET.DR. PO SCH (09:04)
[2018-11-11] MEDS: TAMSULOSIN 0.4 MG CAP.ER.24H. PO SCH (09:05)
[2018-11-11] MEDS: LISINOPRIL 20 MG TABLET PO SCH (09:06)
[2018-11-11] MEDS: CHLORTHALIDONE 25 MG TABLET. PO SCH (09:06)
[2018-11-11] MEDS: FINASTERIDE 5 MG TABLET. PO SCH (09:06)
[2018-11-11] MEDS: ACETAMINOPHEN 325 MG TABLET. PO SCH ×2 (09:06→20:43)
[2018-11-11] MEDS: INSULIN LISPRO 300 UNITS/3 ML INSULN.PEN. SQ SCH ×3 (09:18→17:15)
--- NOTE | 2018-11-11 10:16 | PDOC ---
PROGRESS NOTES Subjective Subjective No new complaints. Objective Objective Vital Signs Date Time Temp Pulse Resp B/P (MAP) Pulse Ox O2 Delivery O2 Flow Rate FiO2 11/11/18 09:06 78 148/77 11/11/18 08:00 Room Air 11/11/18 07:00 97.7 16 94 97.7 11/10/18 08:00 1.5 Intake and Output 11/11/18 07:00 Intake Total 1950 ml Output Total 1001 ml Balance 949 ml Intake Oral 1950 ml Output Urine Total 1000 ml Stool Total 1 ml # Voids 3 Physical Exam Physical Exam He is supine in bed and eating breakfast and he continues with painfully limited knee joint ROM and he is getting up with physical therapy. Plan Plan of Care To get him up as tolerated and to SNF when medically stable and waiting for orthopedic consult for consideration of right TKA. Comment Review of Relevant I have reviewed the following items jackelyn (where applicable) has been applied. Labs Laboratory Tests Test 11/09/18 18:23 11/10/18 08:40 11/10/18 11:14 11/10/18 11:43 White Blood Count 12.5 x10^3/uL (4.0-11.0) 10.4 x10^3/uL (4.0-11.0) Red Blood Count 3.93 x10^6/uL (4.30-5.70) 3.50 x10^6/uL (4.30-5.70) Hemoglobin 12.4 g/dL (13.0-17.5) 11.0 g/dL (13.0-17.5) Hematocrit 36.1 % (39.0-53.0) 32.1 % (39.0-53.0) Mean Corpuscular Volume 92 fL (79-100) 92 fL (79-100) Mean Corpuscular Hemoglobin 32 pg (25-35) 31 pg (25-35) Mean Corpuscular Hemoglobin Concent 34 g/dL (31-37) 34 g/dL (31-37) Red Cell Distribution Width 14.5 % (11.5-14.5) 14.8 % (11.5-14.5) Platelet Count 337 x10^3/uL (140-400) 289 x10^3/uL (140-400) Neutrophils (%) (Auto) 82 % (31-73) 80 % (31-73) Lymphocytes (%) (Auto) 7 % (24-48) 7 % (24-48) Monocytes (%) (Auto) 11 % (0-9) 12 % (0-9) Eosinophils (%) (Auto) 1 % (0-3) 1 % (0-3) Basophils (%) (Auto) 0 % (0-3) 0 % (0-3) Neutrophils # (Auto) 10.2 x10^3uL (1.8-7.7) 8.3 x10^3uL (1.8-7.7) Lymphocytes # (Auto) 0.8 x10^3/uL (1.0-4.8) 0.7 x10^3/uL (1.0-4.8) Monocytes # (Auto) 1.3 x10^3/uL (0.0-1.1) 1.3 x10^3/uL (0.0-1.1) Eosinophils # (Auto) 0.1 x10^3/uL (0.0-0.7) 0.1 x10^3/uL (0.0-0.7) Basophils # (Auto) 0.0 x10^3/uL (0.0-0.2) 0.0 x10^3/uL (0.0-0.2) Sodium Level 140 mmol/L (136-145) 140 mmol/L (136-145) Potassium Level 3.4 mmol/L (3.5-5.1) 3.4 mmol/L (3.5-5.1) Chloride Level 100 mmol/L (98-107) 103 mmol/L (98-107) Carbon Dioxide Level 25 mmol/L (21-32) 24 mmol/L (21-32) Anion Gap 15 (6-14) 13 (6-14) Blood Urea Nitrogen 45 mg/dL (8-26) 30 mg/dL (8-26) Creatinine 1.6 mg/dL (0.7-1.3) 1.3 mg/dL (0.7-1.3) Estimated GFR (Cockcroft-Gault) 42.3 53.8 BUN/Creatinine Ratio 28 (6-20) 23 (6-20) Glucose Level 158 mg/dL (70-99) 174 mg/dL (70-99) Calcium Level 8.9 mg/dL (8.5-10.1) 8.4 mg/dL (8.5-10.1) Magnesium Level 2.1 mg/dL (1.8-2.4) Total Bilirubin 0.4 mg/dL (0.2-1.0) 0.6 mg/dL (0.2-1.0) Aspartate Amino Transf (AST/SGOT) 74 U/L (15-37) 57 U/L (15-37) Alanine Aminotransferase (ALT/SGPT) 143 U/L (16-63) 113 U/L (16-63) Alkaline Phosphatase 280 U/L (46-116) 258 U/L (46-116) Troponin I Quantitative < 0.017 ng/mL (0.000-0.055) Total Protein 7.9 g/dL (6.4-8.2) 6.4 g/dL (6.4-8.2) Albumin 2.8 g/dL (3.4-5.0) 2.2 g/dL (3.4-5.0) Albumin/Globulin Ratio 0.5 (1.0-1.7) 0.5 (1.0-1.7) Salicylates Level < 2.8 mg/dL (2.8-20.0) Salicylate Last Dose Date Salicylate Last Dose Time Acetaminophen Level < 2 mcg/ml (10-30) Acetaminophen Last Dose Date Acetaminophen Last Dose Time Ethyl Alcohol Level < 10 mg/dL (0-10) Hepatitis A IgM Antibody Nonreactive (Nonreactive) Hepatitis B Surface Antigen Nonreactive (Nonreactive) Hepatitis B Core IgM Antibody Nonreactive (Nonreactive) Hepatitis C IgG Antibody Nonreactive (Nonreactive) Urine Collection Type Unknown Urine Color Yellow Urine Clarity Clear Urine pH 6.5 Urine Specific [place] 1.015 Urine Protein Negative mg/dL (NEG-TRACE) Urine Glucose (UA) Negative mg/dL (NEG) Urine Ketones (Stick) Negative mg/dL (NEG) Urine Blood Large (NEG) Urine Nitrite Negative (NEG) Urine Bilirubin Negative (NEG) Urine Urobilinogen Dipstick 1.0 mg/dL (0.2 mg/dL) Urine Leukocyte Esterase Negative (NEG) Urine RBC >40 /HPF (0-2) Urine WBC Occ /HPF (0-4) Urine Squamous Epithelial Cells Few /LPF Urine Bacteria 0 /HPF (0-FEW) Urine Opiates Screen Neg (NEG) Urine Methadone Screen Neg (NEG) Urine Barbiturates Neg (NEG) Urine Phencyclidine Screen Neg (NEG) Urine Amphetamine/Methamphetamine Neg (NEG) Urine Benzodiazepines Screen Neg (NEG) Urine Cocaine Screen Neg (NEG) Urine Cannabinoids Screen Neg (NEG) Urine Ethyl Alcohol Neg (NEG) Glucose (Fingerstick) 142 mg/dL (70-99) Test 11/10/18 16:41 11/10/18 20:55 11/11/18 04:15 11/11/18 07:21 Glucose (Fingerstick) 174 mg/dL (70-99) 252 mg/dL (70-99) 268 mg/dL (70-99) White Blood Count 14.0 x10^3/uL (4.0-11.0) Red Blood Count 3.65 x10^6/uL (4.30-5.70) Hemoglobin 11.4 g/dL (13.0-17.5) Hematocrit 33.7 % (39.0-53.0) Mean Corpuscular Volume 92 fL (79-100) Mean Corpuscular Hemoglobin 31 pg (25-35) Mean Corpuscular Hemoglobin Concent 34 g/dL (31-37) Red Cell Distribution Width 14.9 % (11.5-14.5) Platelet Count 333 x10^3/uL (140-400) Neutrophils (%) (Auto) 93 % (31-73) Lymphocytes (%) (Auto) 4 % (24-48) Monocytes (%) (Auto) 4 % (0-9) Eosinophils (%) (Auto) 0 % (0-3) Basophils (%) (Auto) 0 % (0-3) Neutrophils # (Auto) 13.0 x10^3uL (1.8-7.7) Lymphocytes # (Auto) 0.5 x10^3/uL (1.0-4.8) Monocytes # (Auto) 0.5 x10^3/uL (0.0-1.1) Eosinophils # (Auto) 0.0 x10^3/uL (0.0-0.7) Basophils # (Auto) 0.0 x10^3/uL (0.0-0.2) Segmented Neutrophils % 88 % (35-66) Band Neutrophils % 2 % (0-9) Lymphocytes % 7 % (24-48) Monocytes % 3 % (0-10) Hypersegmented Neutrophils Present Platelet Estimate Adequate (ADEQUATE) Sodium Level 142 mmol/L (136-145) Potassium Level 4.3 mmol/L (3.5-5.1) Chloride Level 105 mmol/L (98-107) Carbon Dioxide Level 23 mmol/L (21-32) Anion Gap 14 (6-14) Blood Urea Nitrogen 35 mg/dL (8-26) Creatinine 1.2 mg/dL (0.7-1.3) Estimated GFR (Cockcroft-Gault) 59.0 BUN/Creatinine Ratio 29 (6-20) Glucose Level 248 mg/dL (70-99) Calcium Level 9.0 mg/dL (8.5-10.1) Total Bilirubin 0.4 mg/dL (0.2-1.0) Aspartate Amino Transf (AST/SGOT) 89 U/L (15-37) Alanine Aminotransferase (ALT/SGPT) 165 U/L (16-63) Alkaline Phosphatase 396 U/L (46-116) Total Protein 7.0 g/dL (6.4-8.2) Albumin 2.2 g/dL (3.4-5.0) Albumin/Globulin Ratio 0.5 (1.0-1.7) Thyroid Stimulating Hormone (TSH) 0.484 uIU/mL (0.358-3.74) Laboratory Tests Test 11/10/18 11:14 11/10/18 11:43 11/10/18 16:41 11/10/18 20:55 Urine Collection Type Unknown Urine Color Yellow Urine Clarity Clear Urine pH 6.5 Urine Specific [place] 1.015 Urine Protein Negative mg/dL (NEG-TRACE) Urine Glucose (UA) Negative mg/dL (NEG) Urine Ketones (Stick) Negative mg/dL (NEG) Urine Blood Large (NEG) Urine Nitrite Negative (NEG) Urine Bilirubin Negative (NEG) Urine Urobilinogen Dipstick 1.0 mg/dL (0.2 mg/dL) Urine Leukocyte Esterase Negative (NEG) Urine RBC >40 /HPF (0-2) Urine WBC Occ /HPF (0-4) Urine Squamous Epithelial Cells Few /LPF Urine Bacteria 0 /HPF (0-FEW) Urine Opiates Screen Neg (NEG) Urine Methadone Screen Neg (NEG) Urine Barbiturates Neg (NEG) Urine Phencyclidine Screen Neg (NEG) Urine Amphetamine/Methamphetamine Neg (NEG) Urine Benzodiazepines Screen Neg (NEG) Urine Cocaine Screen Neg (NEG) Urine Cannabinoids Screen Neg (NEG) Urine Ethyl Alcohol Neg (NEG) Glucose (Fingerstick) 142 mg/dL (70-99) 174 mg/dL (70-99) 252 mg/dL (70-99) Test 11/11/18 04:15 11/11/18 07:21 White Blood Count 14.0 x10^3/uL (4.0-11.0) Red Blood Count 3.65 x10^6/uL (4.30-5.70) Hemoglobin 11.4 g/dL (13.0-17.5) Hematocrit 33.7 % (39.0-53.0) Mean Corpuscular Volume 92 fL (79-100) Mean Corpuscular Hemoglobin 31 pg (25-35) Mean Corpuscular Hemoglobin Concent 34 g/dL (31-37) Red Cell Distribution Width 14.9 % (11.5-14.5) Platelet Count 333 x10^3/uL (140-400) Neutrophils (%) (Auto) 93 % (31-73) Lymphocytes (%) (Auto) 4 % (24-48) Monocytes (%) (Auto) 4 % (0-9) Eosinophils (%) (Auto) 0 % (0-3) Basophils (%) (Auto) 0 % (0-3) Neutrophils # (Auto) 13.0 x10^3uL (1.8-7.7) Lymphocytes # (Auto) 0.5 x10^3/uL (1.0-4.8) Monocytes # (Auto) 0.5 x10^3/uL (0.0-1.1) Eosinophils # (Auto) 0.0 x10^3/uL (0.0-0.7) Basophils # (Auto) 0.0 x10^3/uL (0.0-0.2) Segmented Neutrophils % 88 % (35-66) Band Neutrophils % 2 % (0-9) Lymphocytes % 7 % (24-48) Monocytes % 3 % (0-10) Hypersegmented Neutrophils Present Platelet Estimate Adequate (ADEQUATE) Sodium Level 142 mmol/L (136-145) Potassium Level 4.3 mmol/L (3.5-5.1) Chloride Level 105 mmol/L (98-107) Carbon Dioxide Level 23 mmol/L (21-32) Anion Gap 14 (6-14) Blood Urea Nitrogen 35 mg/dL (8-26) Creatinine 1.2 mg/dL (0.7-1.3) Estimated GFR (Cockcroft-Gault) 59.0 BUN/Creatinine Ratio 29 (6-20) Glucose Level 248 mg/dL (70-99) Calcium Level 9.0 mg/dL (8.5-10.1) Total Bilirubin 0.4 mg/dL (0.2-1.0) Aspartate Amino Transf (AST/SGOT) 89 U/L (15-37) Alanine Aminotransferase (ALT/SGPT) 165 U/L (16-63) Alkaline Phosphatase 396 U/L (46-116) Total Protein 7.0 g/dL (6.4-8.2) Albumin 2.2 g/dL (3.4-5.0) Albumin/Globulin Ratio 0.5 (1.0-1.7) Thyroid Stimulating Hormone (TSH) 0.484 uIU/mL (0.358-3.74) Glucose (Fingerstick) 268 mg/dL (70-99) Medications Current Medications Sodium Chloride 500 ml @ 500 mls/hr 1X ONCE IV Last administered on 11/09/18at 19:45; Start 11/09/18 at 18:15; Stop 11/09/18 at 19:14; Status DC Lorazepam (Ativan Inj) 0.5 mg 1X ONCE IV ; Start 11/09/18 at 18:15; Stop 11/09/18 at 18:16; Status DC Potassium Chloride (Klor-Con) 20 meq 1X ONCE PO Last administered on 11/10/18at 11:22; Start 11/10/18 at 11:00; Stop 11/10/18 at 11:02; Status DC Potassium Chloride/Dextrose/ Sod Cl 1,000 ml @ 100 mls/hr Q10H IV Last administered on 11/11/18at 06:21; Start 11/10/18 at 11:00 Lorazepam (Ativan) 0.5 mg PRN Q8HRS PRN PO ANXIETY / AGITATION Last administered on 11/10/18 11:22; Start 11/10/18 at 11:00 Aspirin (Ecotrin) 325 mg DAILY PO Last administered on 11/11/18 09:04; Start 11/10/18 at 11:30 Chlorthalidone (Thalitone) 25 mg DAILY PO Last administered on 11/11/18 09:06; Start 11/10/18 at 11:30 Finasteride (Proscar) 5 mg DAILY PO Last administered on 11/11/18 09:06; Start 11/10/18 at 11:30 Acetaminophen/ Hydrocodone Bitart (Lortab 5/325) 1 tab PRN Q6HRS PRN PO PAIN; Start 11/10/18 at 11:00 Levothyroxine Sodium (Synthroid) 75 mcg DAILY06 PO Last administered on 11/11/18 06:21; Start 11/10/18 at 11:30 Lisinopril (Prinivil) 20 mg DAILY PO Last administered on 11/11/18 09:06; Start 11/10/18 at 11:30 Tamsulosin HCl (Flomax) 0.4 mg DAILY PO Last administered on 11/11/18 09:05; Start 11/10/18 at 11:30 Acetaminophen (Tylenol) 650 mg BID PO Last administered on 11/11/18 09:06; Start 11/10/18 at 11:30 Atorvastatin Calcium (Lipitor) 80 mg QHS PO Last administered on 11/10/18 20:36; Start 11/10/18 at 21:00 Insulin Human Lispro (HumaLOG) 0-7 UNITS TIDWMEALS SQ Last administered on 11/11/18 09:18; Start 11/10/18 at 12:00 Dextrose (Dextrose 50%-Water Syringe) 12.5 gm PRN Q15MIN PRN IV SEE COMMENTS; Start 11/10/18 at 11:00 Quetiapine Fumarate (SEROquel) 25 mg HS PO Last administered on 11/10/18 20:36; Start 11/10/18 at 21:00 Enoxaparin Sodium (Lovenox Per Pharmacy Prophylaxis Dosing) 1 each PRN DAILY PRN MC SEE COMMENTS; Start 11/10/18 at 11:15; Stop 11/10/18 at 12:14; Status DC Enoxaparin Sodium (Lovenox 40mg Syringe) 40 mg Q24H SQ Last administered on 11/10/18at 17:27; Start 11/10/18 at 16:00 Methylprednisolone Acetate (DEPO-Medrol 40MG VIAL) 40 mg 1X ONCE INJ Last administered on 11/10/18at 13:30; Start 11/10/18 at 13:30; Stop 11/10/18 at 13:31; Status DC Methylprednisolone Acetate (DEPO-Medrol 40MG VIAL) 40 mg 1X ONCE INJ Last administered on 11/10/18at 13:30; Start 11/10/18 at 13:30; Stop 11/10/18 at 13:31; Status DC Bupivacaine HCl (Sensorcaine-Mpf 0.25%) 10 ml 1X ONCE IJ Last administered on 11/10/18at 13:30; Start 11/10/18 at 13:30; Stop 11/10/18 at 13:31; Status DC Insulin Human Lispro (HumaLOG) 4 units 1X ONCE SQ Last administered on 11/10/18at 22:00; Start 11/10/18 at 22:00; Stop 11/10/18 at 22:01; Status DC Active Scripts Active Flomax (Tamsulosin Hcl) 0.4 Mg Cap.er.24h 0.4 Mg PO DAILY 14 Days Reported [place] 5-325 Tablet (Acetaminophen/Hydrocodone Bitart) 1 Each Tablet 1 Tab PO PRN Q6HRS PRN Centrum Complete Multivit Tab (Multivitamin/Iron/Folic Acid) 1 Each Tablet 1 Each PO DAILY Aspirin Ec (Aspirin) 325 Mg Tablet. 1 Tab PO DAILY Vitamin C With Lissette Hips (Ascorbic Acid) 1,000 Mg Tablet 1,000 Mg PO DAILY Calcium 600 + Vit D 400 Caplet (Calcium Carbonate/Vitamin D3) 1 Each Tablet 1 Each PO BID Arthritis Pain (Acetaminophen) 650 Mg Tablet.er 650 Mg PO BID Chlorthalidone (Chlorthalidone) 25 Mg Tablet 25 Mg PO DAILY Finasteride 5 Mg Tablet 5 Mg PO DAILY Levothyroxine Sodium 75 Mcg Tablet 75 Mcg PO DAILYAC Alendronate Sodium 35 Mg Tablet 35 Mg PO WEEKLY Lisinopril 20 Mg Tablet 20 Mg PO DAILY Atorvastatin Calcium 80 Mg Tablet 80 Mg PO HS Vitals/I & O Vital Sign - Last 24 Hours 11/10/18 11/10/18 11/10/18 11/10/18 11:00 11:22 15:00 19:00 Temp 99.0 99.8 99.0 99.0 99.8 99.0 Pulse 76 82 88 86 Resp 16 18 17 B/P (MAP) 141/79 (99) 135/74 124/52 (76) 125/76 (92) Pulse Ox 95 96 95 O2 Delivery Room Air Room Air Room Air 11/10/18 11/10/18 11/11/18 11/11/18 19:45 22:41 02:00 07:00 Temp 98.1 98.3 97.7 98.1 98.3 97.7 Pulse 72 54 78 Resp 17 16 16 B/P (MAP) 154/97 (116) 119/64 (82) 148/77 (100) Pulse Ox 93 92 94 O2 Delivery Room Air Room Air Room Air Room Air 11/11/18 11/11/18 08:00 09:06 Pulse 78 B/P (MAP) 148/77 O2 Delivery Room Air Intake and Output 11/10/18 11/10/18 11/11/18 15:00 23:00 07:00 Intake Total 1500 ml 450 ml Output Total 700 ml 301 ml 0 ml Balance 800 ml 149 ml 0 ml Nutrition Consultation Dietary Evaluation: Recommendations by RD: Increase Calorie Intake, Protein supplementation Comments: REC cardiac diet with ensure enlive bid Expected Outcomes/Goals: to meet > 75% est nutr needs Interpretation of weight loss: >10% in 6 months Malnutrition Findings: Food and Nutrition Intake (Mod: <75% est energy req 7days Weight Status: Appropriate EDDIE BARRETT MD Nov 11, 2018 10:16
--- NOTE | 2018-11-11 10:30 | CONS ---
DATE OF CONSULTATION: ATTENDING PHYSICIAN: Dr. Salas. The patient was seen at the request of Dr. Nicolas for rehab evaluation. He is in room 500. HISTORY OF PRESENT ILLNESS: This is a 73-year-old right-handed male, retired. He cared for his until she was transferred to hospice and on 06/08/2018. Since then, he is having difficulty to take care of himself, brought to the hospital by his neighbor. The patient is tearful and anxious. He is reporting that he had increased depression since June when his of 47 years . He is not able to take care of himself. He does not have any children. He required helping with bathing, for nail care. 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 Right knee is the one causing worse pain. He had stairs to manage in the house. He is also with known congestive heart failure, hypertension, chronic lower back pain, osteoarthritis, sinusitis. HE IS KNOWN ALLERGIC TO BISMUTH SUBSALICYLATE, PROZAC AND PROPOFOL. The patient denies any trouble with his bowel or bladder control, though admits that he has to urinate frequently. He denies any dysuria. PHYSICAL EXAMINATION: Today revealed an elderly male. He is alert, oriented to place and person, follows commands appropriately, moves all 4 extremities voluntarily where he had 4+/5 grade muscle strength. Deep tendon reflexes are 1-2+ and symmetrical with absent ankle jerks. He had some edema of his feet. The patient had crepitus on range of motion of both knee joints with valgus deformity of both knees, and he had some degree of flexion contracture of both knees. He had painful range of motion of his hips and lumbar spine. Straight leg raising test is negative bilaterally. He had equal perception of touch and pinprick sensation bilaterally. He requires help with bed mobility and transfers. I have not tested his ambulation skills at this time. ASSESSMENT: An elderly male with [id number] osteoarthritis medially of both knee joints with valgus deformity and mobility and self-care limitations in a patient with known congestive heart failure, hypertension, chronic lower back pain, depression from loss of his . RECOMMENDATIONS: At his request, I have injected both knees under aseptic skin technique after skin preparation using alcohol swab with Marcaine and Depo-Medrol solution, 2 mL of 0.25% Marcaine mixed with 1 mL of 40 mg/1 mL of Depo-Medrol solution to each knee, and he tolerated the procedure satisfactorily without any side effects. To ask Dr. Crawford and Dr. Ralph and Dr. Zarate to see him for consideration of right total knee arthroplasty. Agree with the plan for physical therapy and occupational therapy. Dr. Nicolas, I appreciate asking me to participate in the care of this interesting patient. I will be glad to follow him with you as needed for the rehabilitation. EDIDE BARRETT MD DR: EVELYN/nts JOB#: [id number] / [id number]
--- NOTE | 2018-11-11 10:32 | PDOC ---
[employer] PROGRESS NOTE Chief Complaint Chief Complaint Severe depression Adjustment disorder Unable to care for himself at home (his just a couple months ago) History of Present Illness History of Present Illness Patient seen and examined He started crying I discussed with case management and his RN Plan is discharge to [facility] in the morning Vitals Vitals Vital Signs Date Time Temp Pulse Resp B/P (MAP) Pulse Ox O2 Delivery O2 Flow Rate FiO2 11/11/18 09:06 78 148/77 11/11/18 08:00 Room Air 11/11/18 07:00 97.7 16 94 97.7 11/10/18 08:00 1.5 Physical Exam General: Alert, Oriented X3, Other (started crying) Heart: Regular rate, Normal S1, Normal S2 Lungs: Clear Abdomen: Normal bowel sounds, Soft Extremities: No clubbing, Other (2+ LE edema and poor str. ) Skin: No rashes, Other (poor nail care and infection of nails,) Labs Labs: Laboratory Tests Test 11/10/18 11:14 11/10/18 11:43 11/10/18 16:41 11/10/18 20:55 Urine Collection Type Unknown Urine Color Yellow Urine Clarity Clear Urine pH 6.5 Urine Specific [place] 1.015 Urine Protein Negative mg/dL (NEG-TRACE) Urine Glucose (UA) Negative mg/dL (NEG) Urine Ketones (Stick) Negative mg/dL (NEG) Urine Blood Large (NEG) Urine Nitrite Negative (NEG) Urine Bilirubin Negative (NEG) Urine Urobilinogen Dipstick 1.0 mg/dL (0.2 mg/dL) Urine Leukocyte Esterase Negative (NEG) Urine RBC >40 /HPF (0-2) Urine WBC Occ /HPF (0-4) Urine Squamous Epithelial Cells Few /LPF Urine Bacteria 0 /HPF (0-FEW) Urine Opiates Screen Neg (NEG) Urine Methadone Screen Neg (NEG) Urine Barbiturates Neg (NEG) Urine Phencyclidine Screen Neg (NEG) Urine Amphetamine/Methamphetamine Neg (NEG) Urine Benzodiazepines Screen Neg (NEG) Urine Cocaine Screen Neg (NEG) Urine Cannabinoids Screen Neg (NEG) Urine Ethyl Alcohol Neg (NEG) Glucose (Fingerstick) 142 mg/dL (70-99) 174 mg/dL (70-99) 252 mg/dL (70-99) Test 11/11/18 04:15 11/11/18 07:21 White Blood Count 14.0 x10^3/uL (4.0-11.0) Red Blood Count 3.65 x10^6/uL (4.30-5.70) Hemoglobin 11.4 g/dL (13.0-17.5) Hematocrit 33.7 % (39.0-53.0) Mean Corpuscular Volume 92 fL (79-100) Mean Corpuscular Hemoglobin 31 pg (25-35) Mean Corpuscular Hemoglobin Concent 34 g/dL (31-37) Red Cell Distribution Width 14.9 % (11.5-14.5) Platelet Count 333 x10^3/uL (140-400) Neutrophils (%) (Auto) 93 % (31-73) Lymphocytes (%) (Auto) 4 % (24-48) Monocytes (%) (Auto) 4 % (0-9) Eosinophils (%) (Auto) 0 % (0-3) Basophils (%) (Auto) 0 % (0-3) Neutrophils # (Auto) 13.0 x10^3uL (1.8-7.7) Lymphocytes # (Auto) 0.5 x10^3/uL (1.0-4.8) Monocytes # (Auto) 0.5 x10^3/uL (0.0-1.1) Eosinophils # (Auto) 0.0 x10^3/uL (0.0-0.7) Basophils # (Auto) 0.0 x10^3/uL (0.0-0.2) Segmented Neutrophils % 88 % (35-66) Band Neutrophils % 2 % (0-9) Lymphocytes % 7 % (24-48) Monocytes % 3 % (0-10) Hypersegmented Neutrophils Present Platelet Estimate Adequate (ADEQUATE) Sodium Level 142 mmol/L (136-145) Potassium Level 4.3 mmol/L (3.5-5.1) Chloride Level 105 mmol/L (98-107) Carbon Dioxide Level 23 mmol/L (21-32) Anion Gap 14 (6-14) Blood Urea Nitrogen 35 mg/dL (8-26) Creatinine 1.2 mg/dL (0.7-1.3) Estimated GFR (Cockcroft-Gault) 59.0 BUN/Creatinine Ratio 29 (6-20) Glucose Level 248 mg/dL (70-99) Calcium Level 9.0 mg/dL (8.5-10.1) Total Bilirubin 0.4 mg/dL (0.2-1.0) Aspartate Amino Transf (AST/SGOT) 89 U/L (15-37) Alanine Aminotransferase (ALT/SGPT) 165 U/L (16-63) Alkaline Phosphatase 396 U/L (46-116) Total Protein 7.0 g/dL (6.4-8.2) Albumin 2.2 g/dL (3.4-5.0) Albumin/Globulin Ratio 0.5 (1.0-1.7) Thyroid Stimulating Hormone (TSH) 0.484 uIU/mL (0.358-3.74) Glucose (Fingerstick) 268 mg/dL (70-99) Assessment and Plan Assessmemt and Plan adjustment disorder, pronounced grief process, poorly controlled, now marked anxiety and severe depression with somatic component poor self care, dystrophic nails knee pain, OA, limited mobility, consult Physiatry weakness and debility, PT and OT htn with chronic diastolic CHF and LE edema transaminitis, check hepatitis panel hypokalemia severe malnutrition, consult nutrition, add supplements, all likely depression related acute vasomotor nephropathy, dehydration, IV fluid cont. We plan to discharge him to custodial in the morning Comment Review of Relevant I have reviewed the following items jackelyn (where applicable) has been applied. Labs Laboratory Tests Test 11/09/18 18:23 11/10/18 08:40 11/10/18 11:14 11/10/18 11:43 White Blood Count 12.5 x10^3/uL (4.0-11.0) 10.4 x10^3/uL (4.0-11.0) Red Blood Count 3.93 x10^6/uL (4.30-5.70) 3.50 x10^6/uL (4.30-5.70) Hemoglobin 12.4 g/dL (13.0-17.5) 11.0 g/dL (13.0-17.5) Hematocrit 36.1 % (39.0-53.0) 32.1 % (39.0-53.0) Mean Corpuscular Volume 92 fL (79-100) 92 fL (79-100) Mean Corpuscular Hemoglobin 32 pg (25-35) 31 pg (25-35) Mean Corpuscular Hemoglobin Concent 34 g/dL (31-37) 34 g/dL (31-37) Red Cell Distribution Width 14.5 % (11.5-14.5) 14.8 % (11.5-14.5) Platelet Count 337 x10^3/uL (140-400) 289 x10^3/uL (140-400) Neutrophils (%) (Auto) 82 % (31-73) 80 % (31-73) Lymphocytes (%) (Auto) 7 % (24-48) 7 % (24-48) Monocytes (%) (Auto) 11 % (0-9) 12 % (0-9) Eosinophils (%) (Auto) 1 % (0-3) 1 % (0-3) Basophils (%) (Auto) 0 % (0-3) 0 % (0-3) Neutrophils # (Auto) 10.2 x10^3uL (1.8-7.7) 8.3 x10^3uL (1.8-7.7) Lymphocytes # (Auto) 0.8 x10^3/uL (1.0-4.8) 0.7 x10^3/uL (1.0-4.8) Monocytes # (Auto) 1.3 x10^3/uL (0.0-1.1) 1.3 x10^3/uL (0.0-1.1) Eosinophils # (Auto) 0.1 x10^3/uL (0.0-0.7) 0.1 x10^3/uL (0.0-0.7) Basophils # (Auto) 0.0 x10^3/uL (0.0-0.2) 0.0 x10^3/uL (0.0-0.2) Sodium Level 140 mmol/L (136-145) 140 mmol/L (136-145) Potassium Level 3.4 mmol/L (3.5-5.1) 3.4 mmol/L (3.5-5.1) Chloride Level 100 mmol/L (98-107) 103 mmol/L (98-107) Carbon Dioxide Level 25 mmol/L (21-32) 24 mmol/L (21-32) Anion Gap 15 (6-14) 13 (6-14) Blood Urea Nitrogen 45 mg/dL (8-26) 30 mg/dL (8-26) Creatinine 1.6 mg/dL (0.7-1.3) 1.3 mg/dL (0.7-1.3) Estimated GFR (Cockcroft-Gault) 42.3 53.8 BUN/Creatinine Ratio 28 (6-20) 23 (6-20) Glucose Level 158 mg/dL (70-99) 174 mg/dL (70-99) Calcium Level 8.9 mg/dL (8.5-10.1) 8.4 mg/dL (8.5-10.1) Magnesium Level 2.1 mg/dL (1.8-2.4) Total Bilirubin 0.4 mg/dL (0.2-1.0) 0.6 mg/dL (0.2-1.0) Aspartate Amino Transf (AST/SGOT) 74 U/L (15-37) 57 U/L (15-37) Alanine Aminotransferase (ALT/SGPT) 143 U/L (16-63) 113 U/L (16-63) Alkaline Phosphatase 280 U/L (46-116) 258 U/L (46-116) Troponin I Quantitative < 0.017 ng/mL (0.000-0.055) Total Protein 7.9 g/dL (6.4-8.2) 6.4 g/dL (6.4-8.2) Albumin 2.8 g/dL (3.4-5.0) 2.2 g/dL (3.4-5.0) Albumin/Globulin Ratio 0.5 (1.0-1.7) 0.5 (1.0-1.7) Salicylates Level < 2.8 mg/dL (2.8-20.0) Salicylate Last Dose Date Salicylate Last Dose Time Acetaminophen Level < 2 mcg/ml (10-30) Acetaminophen Last Dose Date Acetaminophen Last Dose Time Ethyl Alcohol Level < 10 mg/dL (0-10) Hepatitis A IgM Antibody Nonreactive (Nonreactive) Hepatitis B Surface Antigen Nonreactive (Nonreactive) Hepatitis B Core IgM Antibody Nonreactive (Nonreactive) Hepatitis C IgG Antibody Nonreactive (Nonreactive) Urine Collection Type Unknown Urine Color Yellow Urine Clarity Clear Urine pH 6.5 Urine Specific [place] 1.015 Urine Protein Negative mg/dL (NEG-TRACE) Urine Glucose (UA) Negative mg/dL (NEG) Urine Ketones (Stick) Negative mg/dL (NEG) Urine Blood Large (NEG) Urine Nitrite Negative (NEG) Urine Bilirubin Negative (NEG) Urine Urobilinogen Dipstick 1.0 mg/dL (0.2 mg/dL) Urine Leukocyte Esterase Negative (NEG) Urine RBC >40 /HPF (0-2) Urine WBC Occ /HPF (0-4) Urine Squamous Epithelial Cells Few /LPF Urine Bacteria 0 /HPF (0-FEW) Urine Opiates Screen Neg (NEG) Urine Methadone Screen Neg (NEG) Urine Barbiturates Neg (NEG) Urine Phencyclidine Screen Neg (NEG) Urine Amphetamine/Methamphetamine Neg (NEG) Urine Benzodiazepines Screen Neg (NEG) Urine Cocaine Screen Neg (NEG) Urine Cannabinoids Screen Neg (NEG) Urine Ethyl Alcohol Neg (NEG) Glucose (Fingerstick) 142 mg/dL (70-99) Test 11/10/18 16:41 11/10/18 20:55 11/11/18 04:15 11/11/18 07:21 Glucose (Fingerstick) 174 mg/dL (70-99) 252 mg/dL (70-99) 268 mg/dL (70-99) White Blood Count 14.0 x10^3/uL (4.0-11.0) Red Blood Count 3.65 x10^6/uL (4.30-5.70) Hemoglobin 11.4 g/dL (13.0-17.5) Hematocrit 33.7 % (39.0-53.0) Mean Corpuscular Volume 92 fL (79-100) Mean Corpuscular Hemoglobin 31 pg (25-35) Mean Corpuscular Hemoglobin Concent 34 g/dL (31-37) Red Cell Distribution Width 14.9 % (11.5-14.5) Platelet Count 333 x10^3/uL (140-400) Neutrophils (%) (Auto) 93 % (31-73) Lymphocytes (%) (Auto) 4 % (24-48) Monocytes (%) (Auto) 4 % (0-9) Eosinophils (%) (Auto) 0 % (0-3) Basophils (%) (Auto) 0 % (0-3) Neutrophils # (Auto) 13.0 x10^3uL (1.8-7.7) Lymphocytes # (Auto) 0.5 x10^3/uL (1.0-4.8) Monocytes # (Auto) 0.5 x10^3/uL (0.0-1.1) Eosinophils # (Auto) 0.0 x10^3/uL (0.0-0.7) Basophils # (Auto) 0.0 x10^3/uL (0.0-0.2) Segmented Neutrophils % 88 % (35-66) Band Neutrophils % 2 % (0-9) Lymphocytes % 7 % (24-48) Monocytes % 3 % (0-10) Hypersegmented Neutrophils Present Platelet Estimate Adequate (ADEQUATE) Sodium Level 142 mmol/L (136-145) Potassium Level 4.3 mmol/L (3.5-5.1) Chloride Level 105 mmol/L (98-107) Carbon Dioxide Level 23 mmol/L (21-32) Anion Gap 14 (6-14) Blood Urea Nitrogen 35 mg/dL (8-26) Creatinine 1.2 mg/dL (0.7-1.3) Estimated GFR (Cockcroft-Gault) 59.0 BUN/Creatinine Ratio 29 (6-20) Glucose Level 248 mg/dL (70-99) Calcium Level 9.0 mg/dL (8.5-10.1) Total Bilirubin 0.4 mg/dL (0.2-1.0) Aspartate Amino Transf (AST/SGOT) 89 U/L (15-37) Alanine Aminotransferase (ALT/SGPT) 165 U/L (16-63) Alkaline Phosphatase 396 U/L (46-116) Total Protein 7.0 g/dL (6.4-8.2) Albumin 2.2 g/dL (3.4-5.0) Albumin/Globulin Ratio 0.5 (1.0-1.7) Thyroid Stimulating Hormone (TSH) 0.484 uIU/mL (0.358-3.74) Laboratory Tests Test 11/10/18 11:14 11/10/18 11:43 11/10/18 16:41 11/10/18 20:55 Urine Collection Type Unknown Urine Color Yellow Urine Clarity Clear Urine pH 6.5 Urine Specific [place] 1.015 Urine Protein Negative mg/dL (NEG-TRACE) Urine Glucose (UA) Negative mg/dL (NEG) Urine Ketones (Stick) Negative mg/dL (NEG) Urine Blood Large (NEG) Urine Nitrite Negative (NEG) Urine Bilirubin Negative (NEG) Urine Urobilinogen Dipstick 1.0 mg/dL (0.2 mg/dL) Urine Leukocyte Esterase Negative (NEG) Urine RBC >40 /HPF (0-2) Urine WBC Occ /HPF (0-4) Urine Squamous Epithelial Cells Few /LPF Urine Bacteria 0 /HPF (0-FEW) Urine Opiates Screen Neg (NEG) Urine Methadone Screen Neg (NEG) Urine Barbiturates Neg (NEG) Urine Phencyclidine Screen Neg (NEG) Urine Amphetamine/Methamphetamine Neg (NEG) Urine Benzodiazepines Screen Neg (NEG) Urine Cocaine Screen Neg (NEG) Urine Cannabinoids Screen Neg (NEG) Urine Ethyl Alcohol Neg (NEG) Glucose (Fingerstick) 142 mg/dL (70-99) 174 mg/dL (70-99) 252 mg/dL (70-99) Test 11/11/18 04:15 11/11/18 07:21 White Blood Count 14.0 x10^3/uL (4.0-11.0) Red Blood Count 3.65 x10^6/uL (4.30-5.70) Hemoglobin 11.4 g/dL (13.0-17.5) Hematocrit 33.7 % (39.0-53.0) Mean Corpuscular Volume 92 fL (79-100) Mean Corpuscular Hemoglobin 31 pg (25-35) Mean Corpuscular Hemoglobin Concent 34 g/dL (31-37) Red Cell Distribution Width 14.9 % (11.5-14.5) Platelet Count 333 x10^3/uL (140-400) Neutrophils (%) (Auto) 93 % (31-73) Lymphocytes (%) (Auto) 4 % (24-48) Monocytes (%) (Auto) 4 % (0-9) Eosinophils (%) (Auto) 0 % (0-3) Basophils (%) (Auto) 0 % (0-3) Neutrophils # (Auto) 13.0 x10^3uL (1.8-7.7) Lymphocytes # (Auto) 0.5 x10^3/uL (1.0-4.8) Monocytes # (Auto) 0.5 x10^3/uL (0.0-1.1) Eosinophils # (Auto) 0.0 x10^3/uL (0.0-0.7) Basophils # (Auto) 0.0 x10^3/uL (0.0-0.2) Segmented Neutrophils % 88 % (35-66) Band Neutrophils % 2 % (0-9) Lymphocytes % 7 % (24-48) Monocytes % 3 % (0-10) Hypersegmented Neutrophils Present Platelet Estimate Adequate (ADEQUATE) Sodium Level 142 mmol/L (136-145) Potassium Level 4.3 mmol/L (3.5-5.1) Chloride Level 105 mmol/L (98-107) Carbon Dioxide Level 23 mmol/L (21-32) Anion Gap 14 (6-14) Blood Urea Nitrogen 35 mg/dL (8-26) Creatinine 1.2 mg/dL (0.7-1.3) Estimated GFR (Cockcroft-Gault) 59.0 BUN/Creatinine Ratio 29 (6-20) Glucose Level 248 mg/dL (70-99) Calcium Level 9.0 mg/dL (8.5-10.1) Total Bilirubin 0.4 mg/dL (0.2-1.0) Aspartate Amino Transf (AST/SGOT) 89 U/L (15-37) Alanine Aminotransferase (ALT/SGPT) 165 U/L (16-63) Alkaline Phosphatase 396 U/L (46-116) Total Protein 7.0 g/dL (6.4-8.2) Albumin 2.2 g/dL (3.4-5.0) Albumin/Globulin Ratio 0.5 (1.0-1.7) Thyroid Stimulating Hormone (TSH) 0.484 uIU/mL (0.358-3.74) Glucose (Fingerstick) 268 mg/dL (70-99) Medications Current Medications Sodium Chloride 500 ml @ 500 mls/hr 1X ONCE IV Last administered on 11/09/18at 19:45; Start 11/09/18 at 18:15; Stop 11/09/18 at 19:14; Status DC Lorazepam (Ativan Inj) 0.5 mg 1X ONCE IV ; Start 11/09/18 at 18:15; Stop 11/09/18 at 18:16; Status DC Potassium Chloride (Klor-Con) 20 meq 1X ONCE PO Last administered on 11/10/18 11:22; Start 11/10/18 at 11:00; Stop 11/10/18 at 11:02; Status DC Potassium Chloride/Dextrose/ Sod Cl 1,000 ml @ 100 mls/hr Q10H IV Last administered on 11/11/18 06:21; Start 11/10/18 at 11:00 Lorazepam (Ativan) 0.5 mg PRN Q8HRS PRN PO ANXIETY / AGITATION Last a dministered on 11/10/18 11:22; Start 11/10/18 at 11:00 Aspirin (Ecotrin) 325 mg DAILY PO Last administered on 11/11/18 09:04; Start 11/10/18 at 11:30 Chlorthalidone (Thalitone) 25 mg DAILY PO Last administered on 11/11/18 09:06; Start 11/10/18 at 11:30 Finasteride (Proscar) 5 mg DAILY PO Last administered on 11/11/18 09:06; Start 11/10/18 at 11:30 Acetaminophen/ Hydrocodone Bitart (Lortab 5/325) 1 tab PRN Q6HRS PRN PO PAIN; Start 11/10/18 at 11:00 Levothyroxine Sodium (Synthroid) 75 mcg DAILY06 PO Last administered on 11/11/18 06:21; Start 11/10/18 at 11:30 Lisinopril (Prinivil) 20 mg DAILY PO Last administered on 11/11/18 09:06; S tart 11/10/18 at 11:30 Tamsulosin HCl (Flomax) 0.4 mg DAILY PO Last administered on 11/11/18 09:05; Start 11/10/18 at 11:30; Stop 11/11/18 at 10:21; Status DC Acetaminophen (Tylenol) 650 mg BID PO Last administered on 11/11/18 09:06; Start 11/10/18 at 11:30 Atorvastatin Calcium (Lipitor) 80 mg QHS PO Last administered on 11/10/18 20:36; Start 11/10/18 at 21:00 Insulin Human Lispro (HumaLOG) 0-7 UNITS TIDWMEALS SQ Last administered on 11/11/18 09:18; Start 11/10/18 at 12:00 Dextrose (Dextrose 50%-Water Syringe) 12.5 gm PRN Q15MIN PRN IV SEE COMMENTS; Start 11/10/18 at 11:00 Quetiapine Fumarate (SEROquel) 25 mg HS PO Last administered on 11/10/18at 20:36; Start 11/10/18 at 21:00 Enoxaparin Sodium (Lovenox Per Pharmacy Prophylaxis Dosing) 1 each PRN DAILY PRN MC SEE COMMENTS; Start 11/10/18 at 11:15; Stop 11/10/18 at 12:14; Status DC Enoxaparin Sodium (Lovenox 40mg Syringe) 40 mg Q24H SQ Last administered on 11/10/18at 17:27; Start 11/10/18 at 16:00 Methylprednisolone Acetate (DEPO-Medrol 40MG VIAL) 40 mg 1X ONCE INJ Last administered on 11/10/18at 13:30; Start 11/10/18 at 13:30; Stop 11/10/18 at 13:31; Status DC Methylprednisolone Acetate (DEPO-Medrol 40MG VIAL) 40 mg 1X ONCE INJ Last administered on 11/10/18at 13:30; Start 11/10/18 at 13:30; Stop 11/10/18 at 13:31; Status DC Bupivacaine HCl (Sensorcaine-Mpf 0.25%) 10 ml 1X ONCE IJ Last administered on 11/10/18at 13:30; Start 11/10/18 at 13:30; Stop 11/10/18 at 13:31; Status DC Insulin Human Lispro (HumaLOG) 4 units 1X ONCE SQ Last administered on 11/10/18at 22:00; Start 11/10/18 at 22:00; Stop 11/10/18 at 22:01; Status DC Tamsulosin HCl (Flomax) 0.8 mg QHS PO ; Start 11/11/18 at 21:00 Ascorbic Acid (Vitamin C) 500 mg BID PO ; Start 11/11/18 at 11:00 Active Scripts Active Flomax (Tamsulosin Hcl) 0.4 Mg Cap.er.24h 0.4 Mg PO DAILY 14 Days Reported [place] 5-325 Tablet (Acetaminophen/Hydrocodone Bitart) 1 Each Tablet 1 Tab PO PRN Q6HRS PRN Centrum Complete Multivit Tab (Multivitamin/Iron/Folic Acid) 1 Each Tablet 1 Each PO DAILY Aspirin Ec (Aspirin) 325 Mg Tablet.dr 1 Tab PO DAILY Vitamin C With Lissette Hips (Ascorbic Acid) 1,000 Mg Tablet 1,000 Mg PO DAILY Calcium 600 + Vit D 400 Caplet (Calcium Carbonate/Vitamin D3) 1 Each Tablet 1 Each PO BID Arthritis Pain (Acetaminophen) 650 Mg Tablet.er 650 Mg PO BID Chlorthalidone (Chlorthalidone) 25 Mg Tablet 25 Mg PO DAILY Finasteride 5 Mg Tablet 5 Mg PO DAILY Levothyroxine Sodium 75 Mcg Tablet 75 Mcg PO DAILYAC Alendronate Sodium 35 Mg Tablet 35 Mg PO WEEKLY Lisinopril 20 Mg Tablet 20 Mg PO DAILY Atorvastatin Calcium 80 Mg Tablet 80 Mg PO HS Vitals/I & O Vital Sign - Last 24 Hours 11/10/18 11/10/18 11/10/18 11/10/18 11:00 11:22 15:00 19:00 Temp 99.0 99.8 99.0 99.0 99.8 99.0 Pulse 76 82 88 86 Resp 16 18 17 B/P (MAP) 141/79 (99) 135/74 124/52 (76) 125/76 (92) Pulse Ox 95 96 95 O2 Delivery Room Air Room Air Room Air 11/10/18 11/10/18 11/11/18 11/11/18 19:45 22:41 02:00 07:00 Temp 98.1 98.3 97.7 98.1 98.3 97.7 Pulse 72 54 78 Resp 17 16 16 B/P (MAP) 154/97 (116) 119/64 (82) 148/77 (100) Pulse Ox 93 92 94 O2 Delivery Room Air Room Air Room Air Room Air 11/11/18 11/11/18 08:00 09:06 Pulse 78 B/P (MAP) 148/77 O2 Delivery Room Air Intake and Output 11/10/18 11/10/18 11/11/18 14:59 22:59 06:59 Intake Total 1500 ml 450 ml Output Total 700 ml 301 ml 0 ml Balance 800 ml 149 ml 0 ml KATHI ROGERS III DO Nov 11, 2018 10:32
[2018-11-11 11:00] VITALS: BP 135/67
[2018-11-11] MEDS: CITALOPRAM 10 MG TABLET. PO SCH (12:30)
[2018-11-11] MEDS: ASCORBIC ACID 500 MG TABLET PO SCH ×2 (12:30→20:43)
[2018-11-11 15:00] VITALS: BP 143/80
--- NOTE | 2018-11-11 15:29 | NUR ---
SW following pt. SW spoke with pt about SNU and he chose [facility]. Referral faxed and pt is accepted. [facility] will have a bed available upon dc. ELDA also left brochure for [facility] to pt's Serge GALVEZ and left a voice mail regarding plans. Serge was agreeable with pt going to SNU this morning. Will continue to follow.
[2018-11-11] MEDS: ENOXAPARIN 40 MG/0.4 ML SYRINGE. SQ SCH (15:46)
[2018-11-11 19:00] VITALS: BP 143/69
--- NOTE | 2018-11-11 19:03 | PDOC2 ---
PALLIATIVE CARE Palliative Care Note Palliative Care Patient started on antidepressant today. Sitting up in chair. Working with PT. Agrees to go to SNU for strengthening. Appetite better here than at home per patient. Enjoys conversation and being around people. Spoke with Serge GALVEZ. Consideration is being given to [facility]. Nicole SCHROEDER assisting with discharge plan. DIGNA PORTILLO Nov 11, 2018 19:03
[2018-11-11] MEDS: ATORVASTATIN CALCIUM 40 MG TABLET. PO SCH (20:43)
[2018-11-11] MEDS: QUEtiapine 25 MG TABLET. PO SCH (20:43)
[2018-11-11] MEDS ORDERED: TAMSULOSIN 0.4 MG CAP.ER.24H. PO SCH (21:00)
[2018-11-11 23:00] VITALS: BP_SYST 138; BP_SYST 164; BP_DIAS 57; BP_DIAS 74
[2018-11-12] MEDS: POTASSIUM CL 20MEQ D5-0.45NACL 1,000 ML IV SCH (01:54)
[2018-11-12 03:00] VITALS: BP 133/67
[2018-11-12] MEDS: LEVOTHYROXINE 75 MCG TABLET PO SCH (06:12)
[2018-11-12 07:00] VITALS: BP 115/64
[2018-11-12] MEDS: CHLORTHALIDONE 25 MG TABLET. PO SCH (08:13)
[2018-11-12] MEDS: ASCORBIC ACID 500 MG TABLET PO SCH (08:14)
[2018-11-12] MEDS: FINASTERIDE 5 MG TABLET. PO SCH (08:14)
[2018-11-12] MEDS: LISINOPRIL 20 MG TABLET PO SCH (08:14)
[2018-11-12] MEDS: ASPIRIN ENTERIC COATED 325 MG TABLET.DR. PO SCH (08:14)
[2018-11-12] MEDS: CITALOPRAM 10 MG TABLET. PO SCH (08:14)
[2018-11-12] MEDS: ACETAMINOPHEN 325 MG TABLET. PO SCH (08:14)
--- NOTE | 2018-11-12 08:14 | PDOC2 ---
PALLIATIVE CARE Palliative Care Note Palliative Care Patient sitting up in bed. Eating breakfast. States he slept will last night. Appreciative of care and reading material brought to him. Plan [facility] for strengthening. On antidepressant. Rx Specialist visited yesterday. Serge GALVEZ working with patient on alternative living arrangements when D/C from [facility]. Will need to re-connect with Grief Support Groups when discharged. DIGNA PORTILLO Nov 12, 2018 08:14
[2018-11-12 08:15] VITALS: BP 115/64
[2018-11-12] MEDS: INSULIN LISPRO 300 UNITS/3 ML INSULN.PEN. SQ SCH ×2 (08:21→12:55)
--- NOTE | 2018-11-12 09:29 | PDOC ---
PROGRESS NOTES Subjective Subjective He feels better. Objective Objective Vital Signs Date Time Temp Pulse Resp B/P (MAP) Pulse Ox O2 Delivery O2 Flow Rate FiO2 11/12/18 08:15 97.9 64 115/64 (81) 98 Room Air 1.5 97.9 11/12/18 07:00 18 Intake and Output 11/12/18 07:00 Intake Total 3325 ml Output Total 900 ml Balance 2425 ml Intake Oral 600 ml IV Total 2725 ml Output Urine Total 900 ml # Voids 2 # Bowel Movements 3 Physical Exam Physical Exam He did walk with walker for 500' yesterday but still requires assistance with self care and he did not try stairs. Still waiting for orthopedic consult for consideration of right TKA. Plan Plan of Care Agree with plans for transfer to SNF after been seen by orthopedics. Comment Review of Relevant I have reviewed the following items jackelyn (where applicable) has been applied. Labs Laboratory Tests Test 11/10/18 11:14 11/10/18 11:43 11/10/18 16:41 11/10/18 20:55 Urine Collection Type Unknown Urine Color Yellow Urine Clarity Clear Urine pH 6.5 Urine Specific [place] 1.015 Urine Protein Negative mg/dL (NEG-TRACE) Urine Glucose (UA) Negative mg/dL (NEG) Urine Ketones (Stick) Negative mg/dL (NEG) Urine Blood Large (NEG) Urine Nitrite Negative (NEG) Urine Bilirubin Negative (NEG) Urine Urobilinogen Dipstick 1.0 mg/dL (0.2 mg/dL) Urine Leukocyte Esterase Negative (NEG) Urine RBC >40 /HPF (0-2) Urine WBC Occ /HPF (0-4) Urine Squamous Epithelial Cells Few /LPF Urine Bacteria 0 /HPF (0-FEW) Urine Opiates Screen Neg (NEG) Urine Methadone Screen Neg (NEG) Urine Barbiturates Neg (NEG) Urine Phencyclidine Screen Neg (NEG) Urine Amphetamine/Methamphetamine Neg (NEG) Urine Benzodiazepines Screen Neg (NEG) Urine Cocaine Screen Neg (NEG) Urine Cannabinoids Screen Neg (NEG) Urine Ethyl Alcohol Neg (NEG) Glucose (Fingerstick) 142 mg/dL (70-99) 174 mg/dL (70-99) 252 mg/dL (70-99) Test 11/11/18 04:15 11/11/18 07:21 11/11/18 11:52 11/11/18 16:30 White Blood Count 14.0 x10^3/uL (4.0-11.0) Red Blood Count 3.65 x10^6/uL (4.30-5.70) Hemoglobin 11.4 g/dL (13.0-17.5) Hematocrit 33.7 % (39.0-53.0) Mean Corpuscular Volume 92 fL (79-100) Mean Corpuscular Hemoglobin 31 pg (25-35) Mean Corpuscular Hemoglobin Concent 34 g/dL (31-37) Red Cell Distribution Width 14.9 % (11.5-14.5) Platelet Count 333 x10^3/uL (140-400) Neutrophils (%) (Auto) 93 % (31-73) Lymphocytes (%) (Auto) 4 % (24-48) Monocytes (%) (Auto) 4 % (0-9) Eosinophils (%) (Auto) 0 % (0-3) Basophils (%) (Auto) 0 % (0-3) Neutrophils # (Auto) 13.0 x10^3uL (1.8-7.7) Lymphocytes # (Auto) 0.5 x10^3/uL (1.0-4.8) Monocytes # (Auto) 0.5 x10^3/uL (0.0-1.1) Eosinophils # (Auto) 0.0 x10^3/uL (0.0-0.7) Basophils # (Auto) 0.0 x10^3/uL (0.0-0.2) Segmented Neutrophils % 88 % (35-66) Band Neutrophils % 2 % (0-9) Lymphocytes % 7 % (24-48) Monocytes % 3 % (0-10) Hypersegmented Neutrophils Present Platelet Estimate Adequate (ADEQUATE) Sodium Level 142 mmol/L (136-145) Potassium Level 4.3 mmol/L (3.5-5.1) Chloride Level 105 mmol/L (98-107) Carbon Dioxide Level 23 mmol/L (21-32) Anion Gap 14 (6-14) Blood Urea Nitrogen 35 mg/dL (8-26) Creatinine 1.2 mg/dL (0.7-1.3) Estimated GFR (Cockcroft-Gault) 59.0 BUN/Creatinine Ratio 29 (6-20) Glucose Level 248 mg/dL (70-99) Calcium Level 9.0 mg/dL (8.5-10.1) Total Bilirubin 0.4 mg/dL (0.2-1.0) Aspartate Amino Transf (AST/SGOT) 89 U/L (15-37) Alanine Aminotransferase (ALT/SGPT) 165 U/L (16-63) Alkaline Phosphatase 396 U/L (46-116) Total Protein 7.0 g/dL (6.4-8.2) Albumin 2.2 g/dL (3.4-5.0) Albumin/Globulin Ratio 0.5 (1.0-1.7) Thyroid Stimulating Hormone (TSH) 0.484 uIU/mL (0.358-3.74) Glucose (Fingerstick) 268 mg/dL (70-99) 204 mg/dL (70-99) 232 mg/dL (70-99) Test 11/11/18 19:34 11/12/18 07:07 Glucose (Fingerstick) 213 mg/dL (70-99) 218 mg/dL (70-99) Laboratory Tests Test 11/11/18 11:52 11/11/18 16:30 11/11/18 19:34 11/12/18 07:07 Glucose (Fingerstick) 204 mg/dL (70-99) 232 mg/dL (70-99) 213 mg/dL (70-99) 218 mg/dL (70-99) Medications Current Medications Sodium Chloride 500 ml @ 500 mls/hr 1X ONCE IV Last administered on 11/09/18at 19:45; Start 11/09/18 at 18:15; Stop 11/09/18 at 19:14; Status DC Lorazepam (Ativan Inj) 0.5 mg 1X ONCE IV ; Start 11/09/18 at 18:15; Stop 11/09/18 at 18:16; Status DC Potassium Chloride (Klor-Con) 20 meq 1X ONCE PO Last administered on 11/10/18at 11:22; Start 11/10/18 at 11:00; Stop 11/10/18 at 11:02; Status DC Potassium Chloride/Dextrose/ Sod Cl 1,000 ml @ 100 mls/hr Q10H IV Last adm inistered on 11/12/18at 01:54; Start 11/10/18 at 11:00; Stop 11/12/18 at 08:49; Status DC Lorazepam (Ativan) 0.5 mg PRN Q8HRS PRN PO ANXIETY / AGITATION Last administered on 11/10/18 11:22; Start 11/10/18 at 11:00 Aspirin (Ecotrin) 325 mg DAILY PO Last administered on 11/12/18 08:14; Start 11/10/18 at 11:30 Chlorthalidone (Thalitone) 25 mg DAILY PO Last administered on 11/12/18 08:13; Start 11/10/18 at 11:30 Finasteride (Proscar) 5 mg DAILY PO Last administered on 11/12/18 08:14; Start 11/10/18 at 11:30 Acetaminophen/ Hydrocodone Bitart (Lortab 5/325) 1 tab PRN Q6HRS PRN PO PAIN Last administered on 11/11/18 13:31; Start 11/10/18 at 11:00 Levothyroxine Sodium (Synthroid) 75 mcg DAILY06 PO Last administered on 11/12/18 06:12; Start 11/10/18 at 11:30 Lisinopril (Prinivil) 20 mg DAILY PO Last administered on 11/12/18 08:14; Start 11/10/18 at 11:30 Tamsulosin HCl (Flomax) 0.4 mg DAILY PO Last administered on 11/11/18 09:05; Start 11/10/18 at 11:30; Stop 11/11/18 at 10:21; Status DC Acetaminophen (Tylenol) 650 mg BID PO Last administered on 11/12/18 08:14; Start 11/10/18 at 11:30 Atorvastatin Calcium (Lipitor) 80 mg QHS PO Last administered on 11/11/18 20:43; Start 11/10/18 at 21:00 Insulin Human Lispro (HumaLOG) 0-7 UNITS TIDWMEALS SQ Last administered on 11/12/18 08:21; Start 11/10/18 at 12:00 Dextrose (Dextrose 50%-Water Syringe) 12.5 gm PRN Q15MIN PRN IV SEE COMMENTS; Start 11/10/18 at 11:00 Quetiapine Fumarate (SEROquel) 25 mg HS PO Last administered on 11/11/18 20:43; Start 11/10/18 at 21:00 Enoxaparin Sodium (Lovenox Per Pharmacy Prophylaxis Dosing) 1 each PRN DAILY PRN MC SEE COMMENTS; Start 11/10/18 at 11:15; Stop 11/10/18 at 12:14; Status DC Enoxaparin Sodium (Lovenox 40mg Syringe) 40 mg Q24H SQ Last administered on 11/11/18at 15:46; Start 11/10/18 at 16:00 Methylprednisolone Acetate (DEPO-Medrol 40MG VIAL) 40 mg 1X ONCE INJ Last administered on 11/10/18at 13:30; Start 11/10/18 at 13:30; Stop 11/10/18 at 13:31; Status DC Methylprednisolone Acetate (DEPO-Medrol 40MG VIAL) 40 mg 1X ONCE INJ Last administered on 11/10/18 13:30; Start 11/10/18 at 13:30; Stop 11/10/18 at 13:31; Status DC Bupivacaine HCl (Sensorcaine-Mpf 0.25%) 10 ml 1X ONCE IJ Last administered on 11/10/18at 13:30; Start 11/10/18 at 13:30; Stop 11/10/18 at 13:31; Status DC Insulin Human Lispro (HumaLOG) 4 units 1X ONCE SQ Last administered on 11/10/18at 22:00; Start 11/10/18 at 22:00; Stop 11/10/18 at 22:01; Status DC Tamsulosin HCl (Flomax) 0.8 mg QHS PO Last administered on 11/11/18at 20:43; Start 11/11/18 at 21:00 Ascorbic Acid (Vitamin C) 500 mg BID PO Last administered on 11/12/18at 08:14; Start 11/11/18 at 11:00 Citalopram Hydrobromide (CeleXA) 10 mg DAILY PO Last administered on 11/12/18 08:14; Start 11/11/18 at 12:30 Active Scripts Active Flomax (Tamsulosin Hcl) 0.4 Mg Cap.er.24h 0.4 Mg PO DAILY 14 Days Reported [place] 5-325 Tablet (Acetaminophen/Hydrocodone Bitart) 1 Each Tablet 1 Tab PO PRN Q6HRS PRN Centrum Complete Multivit Tab (Multivitamin/Iron/Folic Acid) 1 Each Tablet 1 Each PO DAILY Aspirin Ec (Aspirin) 325 Mg Tablet.dr 1 Tab PO DAILY Vitamin C With Lissette Hips (Ascorbic Acid) 1,000 Mg Tablet 1,000 Mg PO DAILY Calcium 600 + Vit D 400 Caplet (Calcium Carbonate/Vitamin D3) 1 Each Tablet 1 Each PO BID Arthritis Pain (Acetaminophen) 650 Mg Tablet.er 650 Mg PO BID Chlorthalidone (Chlorthalidone) 25 Mg Tablet 25 Mg PO DAILY Finasteride 5 Mg Tablet 5 Mg PO DAILY Levothyroxine Sodium 75 Mcg Tablet 75 Mcg PO DAILYAC Alendronate Sodium 35 Mg Tablet 35 Mg PO WEEKLY Lisinopril 20 Mg Tablet 20 Mg PO DAILY Atorvastatin Calcium 80 Mg Tablet 80 Mg PO HS Vitals/I & O Vital Sign - Last 24 Hours 11/11/18 11/11/18 11/11/18 11/11/18 11:00 13:31 14:31 15:00 Temp 98.2 98.0 98.2 98.0 Pulse 77 89 Resp 16 20 20 16 B/P (MAP) 135/67 (89) 143/80 (101) Pulse Ox 95 95 95 95 O2 Delivery Room Air Room Air Room Air Room Air 11/11/18 11/11/18 11/11/18 11/12/18 19:00 20:40 23:00 03:00 Temp 98.0 98.1 98.0 98.0 98.1 98.0 Pulse 76 79 68 Resp 18 18 18 B/P (MAP) 143/69 (93) 138/74 (95) 133/67 (89) Pulse Ox 96 94 98 O2 Delivery Room Air Room Air Room Air Room Air O2 Flow Rate 1.5 1.5 1.5 11/12/18 11/12/18 11/12/18 11/12/18 07:00 08:00 08:14 08:15 Temp 97.9 97.9 97.9 97.9 Pulse 64 64 64 Resp 18 B/P (MAP) 115/64 (81) 115/64 115/64 (81) Pulse Ox 98 98 O2 Delivery Room Air Room Air Room Air O2 Flow Rate 1.5 1.5 Intake and Output 11/11/18 11/11/18 11/12/18 15:00 23:00 07:00 Intake Total 360 ml 240 ml 2725 ml Output Total 900 ml Balance 360 ml 240 ml 1825 ml Nutrition Consultation Dietary Evaluation: Recommendations by RD: Increase Calorie Intake, Protein supplementation Comments: REC cardiac diet with ensure enlive bid Expected Outcomes/Goals: to meet > 75% est nutr needs Interpretation of weight loss: >10% in 6 months Malnutrition Findings: Food and Nutrition Intake (Mod: <75% est energy req 7days Weight Status: Appropriate EDDIE BARRETT MD Nov 12, 2018 09:29
[2018-11-12 11:00] VITALS: BP 126/56
[2018-11-12] MEDS ORDERED: LORA0.5T96 PO (11:52)
[2018-11-12] MEDS ORDERED: CITA10TA8 PO (11:52)
[2018-11-12] MEDS ORDERED: HYDR-3164 PO (11:52)
--- NOTE | 2018-11-12 11:53 | SNU/HH DC ---
DISCHARGE ORDERS DISCHARGE INFORMATION: DISCHARGE DATE: Nov 12, 2018 CONDITION ON DISCHARGE: Stable CODE STATUS: Code Status: DNR/DNI FPC: SNF STAY <30 DAYS: Yes HOSPICE: HOSPICE: No HOSPICE EVAL & TREAT: No LTAC: ADMIT TO LTAC: No POST DISCHARGE ORDERS: ACTIVITY ORDERS: Activity as tolerated WEIGHT BEARING STATUS: No restrictions WOUND/INCISION CARE: Keep wound/cast CDI CHECKS AFTER DISCHARGE: CHECKS AFTER DISCHARGE: Check blood sugar, ac/hs FOLLOW-UP: PHYSICIAN FOLLOW-UP: pcp after snu dc TREATMENT/EQUIPMENT ORDERS: ADAPTIVE EQUIPMENT NEEDED: Front wheeled walker Physical Therapy For: Evalulation/Treatment Occupational Therapy For: Evaluation/Treatment DISCHARGE MEDICATIONS: Home Meds Active Scripts Citalopram Hydrobromide (CELEXA) 10 Mg Tablet, 10 MG PO DAILY for depression MDD 1, #30 TAB Prov:INOCENCIO MOELLER MD 11/12/18 Lorazepam (ATIVAN) 0.5 Mg Tablet, 0.5 MG PO PRN Q8HRS PRN for ANXIETY / AGITATION MDD 1, #60 TAB Prov:INOCENCIO MOELLER MD 11/12/18 Hydrocodone/Apap 5-325 ([place] 5-325 TABLET) 1 Each Tablet, 1 TAB PO PRN Q6HRS PRN for PAIN MDD 1, #60 TAB 0 Refills Prov:INOCENCIO MOELLER MD 11/12/18 Tamsulosin Hcl (FLOMAX) 0.4 Mg Cap.er.24h, 0.4 MG PO DAILY for 14 Days, #14 TAB Prov:GIRISH FREGOSO DO 06/26/18 Reported Medications Multivitamin/Iron/Folic Acid (CENTRUM COMPLETE MULTIVIT TAB) 1 Each Tablet, 1 EACH PO DAILY 06/16/16 Aspirin (ASPIRIN EC) 325 Mg Tablet.dr, 1 TAB PO DAILY, #30 TAB 5 Refills 06/16/16 Ascorbic Acid (VITAMIN C WITH TIMO HIPS) 1,000 Mg Tablet, 1000 MG PO DAILY 05/11/15 Calcium Carbonate/Vitamin D3 (CALCIUM 600 + VIT D 400 CAPLET) 1 Each Tablet, 1 EACH PO BID 05/11/15 Acetaminophen (ARTHRITIS PAIN) 650 Mg Tablet.er, 650 MG PO BID 05/11/15 Chlorthalidone (CHLORTHALIDONE ) 25 Mg Tablet, 25 MG PO DAILY 12/4/15 Finasteride (FINASTERIDE) 5 Mg Tablet, 5 MG PO DAILY, TAB 05/11/15 Levothyroxine Sodium (LEVOTHYROXINE SODIUM) 75 Mcg Tablet, 75 MCG PO DAILYAC for THYROID SUPPLEMENT, #30 TAB 0 Refills 05/11/15 Alendronate Sodium (ALENDRONATE SODIUM) 35 Mg Tablet, 35 MG PO WEEKLY, TAB 05/11/15 Lisinopril (LISINOPRIL) 20 Mg Tablet, 20 MG PO DAILY for FOR HYPERTENSION, #30 TAB 0 Refills 05/11/15 Atorvastatin Calcium (ATORVASTATIN CALCIUM) 80 Mg Tablet, 80 MG PO HS for FOR CHOLESTEROL, #30 TAB 0 Refills 05/11/15 INOCENCIO MOELLER MD Nov 12, 2018 11:53
--- NOTE | 2018-11-12 11:56 | PDOC3 ---
Discharge Summary Visit Information Date of Admission: Nov 09, 2018 Date of Discharge: Nov 12, 2018 Admitting Diagnosis Comment: depression Generalized weakness-SNU candidate DNR Elevated LFTs-stable Brief Hospital Course Allergies Allergies Coded Allergies Type Severity Reaction Last Updated Verified fluoxetine Allergy Severe shakes 05/11/15 Yes propofol Allergy Intermediate Inability to urinate 11/10/18 Yes bismuth subsalicylate Adverse Reaction Mild 11/10/18 Yes Vital Signs Vital Signs Date Time Temp Pulse Resp B/P (MAP) Pulse Ox O2 Delivery O2 Flow Rate FiO2 11/12/18 11:00 98.0 75 17 126/56 (79) 98 Room Air 1.5 98.0 Lab Results Laboratory Tests Test 11/10/18 16:41 11/10/18 20:55 11/11/18 04:15 11/11/18 07:21 Glucose (Fingerstick) 174 mg/dL (70-99) 252 mg/dL (70-99) 268 mg/dL (70-99) White Blood Count 14.0 x10^3/uL (4.0-11.0) Red Blood Count 3.65 x10^6/uL (4.30-5.70) Hemoglobin 11.4 g/dL (13.0-17.5) Hematocrit 33.7 % (39.0-53.0) Mean Corpuscular Volume 92 fL (79-100) Mean Corpuscular Hemoglobin 31 pg (25-35) Mean Corpuscular Hemoglobin Concent 34 g/dL (31-37) Red Cell Distribution Width 14.9 % (11.5-14.5) Platelet Count 333 x10^3/uL (140-400) Neutrophils (%) (Auto) 93 % (31-73) Lymphocytes (%) (Auto) 4 % (24-48) Monocytes (%) (Auto) 4 % (0-9) Eosinophils (%) (Auto) 0 % (0-3) Basophils (%) (Auto) 0 % (0-3) Neutrophils # (Auto) 13.0 x10^3uL (1.8-7.7) Lymphocytes # (Auto) 0.5 x10^3/uL (1.0-4.8) Monocytes # (Auto) 0.5 x10^3/uL (0.0-1.1) Eosinophils # (Auto) 0.0 x10^3/uL (0.0-0.7) Basophils # (Auto) 0.0 x10^3/uL (0.0-0.2) Segmented Neutrophils % 88 % (35-66) Band Neutrophils % 2 % (0-9) Lymphocytes % 7 % (24-48) Monocytes % 3 % (0-10) Hypersegmented Neutrophils Present Platelet Estimate Adequate (ADEQUATE) Sodium Level 142 mmol/L (136-145) Potassium Level 4.3 mmol/L (3.5-5.1) Chloride Level 105 mmol/L (98-107) Carbon Dioxide Level 23 mmol/L (21-32) Anion Gap 14 (6-14) Blood Urea Nitrogen 35 mg/dL (8-26) Creatinine 1.2 mg/dL (0.7-1.3) Estimated GFR (Cockcroft-Gault) 59.0 BUN/Creatinine Ratio 29 (6-20) Glucose Level 248 mg/dL (70-99) Calcium Level 9.0 mg/dL (8.5-10.1) Total Bilirubin 0.4 mg/dL (0.2-1.0) Aspartate Amino Transf (AST/SGOT) 89 U/L (15-37) Alanine Aminotransferase (ALT/SGPT) 165 U/L (16-63) Alkaline Phosphatase 396 U/L (46-116) Total Protein 7.0 g/dL (6.4-8.2) Albumin 2.2 g/dL (3.4-5.0) Albumin/Globulin Ratio 0.5 (1.0-1.7) Thyroid Stimulating Hormone (TSH) 0.484 uIU/mL (0.358-3.74) Test 11/11/18 11:52 11/11/18 16:30 11/11/18 19:34 11/12/18 07:07 Glucose (Fingerstick) 204 mg/dL (70-99) 232 mg/dL (70-99) 213 mg/dL (70-99) 218 mg/dL (70-99) Test 11/12/18 11:16 Glucose (Fingerstick) 157 mg/dL (70-99) Laboratory Tests Test 11/11/18 16:30 11/11/18 19:34 11/12/18 07:07 11/12/18 11:16 Glucose (Fingerstick) 232 mg/dL (70-99) 213 mg/dL (70-99) 218 mg/dL (70-99) 157 mg/dL (70-99) Brief Hospital Course Mr. Hardy is a 73 old male brought in by family with a working diagnosis by a colleague of depression and elevated LFTs. 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 Course, at least by notes, had some depression or failure to thrive symptoms. Colleague has started Seroquel and Celexa and some Ativan. I will just Rx Ativan and Celexa. I did order ultrasound liver, before leaving to make sure liver is okay, LFTs are still elevated but stable Physiatry consulted and wanted the patient to be seen by orthopedics for that knee before dcing to pplace Otherwise DNR, and ready for [place] the facility has accepted him Patient seen and examined, discussed with RN consults: physitary, ortho dc 32 mins Discharge Information Condition at Discharge: Improved, Stable Follow Up: Weeks (pcp after snu dc) Disposition/Orders: Other (snu) Scheduled Acetaminophen (Arthritis Pain) 650 Mg Tablet.er, 650 MG PO BID, (Reported) Entered as Reported by: TAE MACHADO RPH on 05/11/151431 Last Action: Converted on 11/10/181052 by EDUARD TAYLOR Alendronate Sodium (Alendronate Sodium) 35 Mg Tablet, 35 MG PO WEEKLY, (Reported) Entered as Reported by: TAE MACHADO RPH on 05/11/151431 Last Action: HELD on 11/10/181052 by EDUARD TAYLOR Ascorbic Acid (Vitamin C With Lissette Hips) 1,000 Mg Tablet, 1,000 MG PO DAILY, (Reported) Entered as Reported by: TAE MACHADO RPH on 05/11/151431 Last Action: HELD on 11/10/181052 by EDUARD TAYLOR Aspirin (Aspirin Ec) 325 Mg Tablet.dr, 1 TAB PO DAILY, #30 Ref 5 (Reported) Entered as Reported by: ANGELINA KHAN on 06/16/16 0849 Last Action: Continued on 11/10/181052 by EDUARD TAYLOR Atorvastatin Calcium (Atorvastatin Calcium) 80 Mg Tablet, 80 MG PO HS for FOR CHOLESTEROL, #30 Ref 0 (Reported) Entered as Reported by: TAE MACHADO RPH on 05/11/151431 Last Action: Converted on 11/10/181052 by EDUARD TAYLOR Calcium Carbonate/Vitamin D3 (Calcium 600 + Vit D 400 Caplet) 1 Each Tablet, 1 EACH PO BID, (Reported) Entered as Reported by: TAE MACHADO RPH on 05/11/151431 Last Action: HELD on 11/10/181052 by EDUARD TAYLOR Chlorthalidone (Chlorthalidone ) 25 Mg Tablet, 25 MG PO DAILY, (Reported) Entered as Reported by: TAE MACHADO RPH on 05/11/151431 Last Action: Continued on 11/10/181052 by EDUARD TAYLOR Citalopram Hydrobromide (Celexa) 10 Mg Tablet, 10 MG PO DAILY for depression MDD 1, #30 Prescribed by: INOCENCIO MOELLER on 11/12/18 1152 Finasteride (Finasteride) 5 Mg Tablet, 5 MG PO DAILY, (Reported) Entered as Reported by: TAE MACHADO RPH on 05/11/151431 Last Action: Continued on 11/10/181052 by EDUARD TAYLOR Levothyroxine Sodium (Levothyroxine Sodium) 75 Mcg Tablet, 75 MCG PO DAILYAC for THYROID SUPPLEMENT, #30 Ref 0 (Reported) Entered as Reported by: TAE MACHADO RPH on 05/11/151431 Last Action: Continued on 11/10/181052 by EDUARD TAYLOR Lisinopril (Lisinopril) 20 Mg Tablet, 20 MG PO DAILY for FOR HYPERTENSION, #30 Ref 0 (Reported) Entered as Reported by: TAE MACHADO RPH on 05/11/151431 Last Action: Continued on 11/10/181052 by EDUARD TAYLOR Multivitamin/Iron/Folic Acid (Centrum Complete Multivit Tab) 1 Each Tablet, 1 EACH PO DAILY, (Reported) Entered as Reported by: ANGELINA KHAN on 06/16/16 0849 Last Action: HELD on 11/10/181052 by EDUARD TAYLOR Tamsulosin Hcl (Flomax) 0.4 Mg Cap.er.24h, 0.4 MG PO DAILY for 14 Days, #14 Prescribed by: GIRISH FREGOSO D.O. on 06/26/18 0629 Last Action: Continued on 11/10/18 1053 by EDUARD TAYLOR Scheduled PRN Hydrocodone/Apap 5-325 ([place] 5-325 Tablet) 1 Each Tablet, 1 TAB PO PRN Q6HRS PRN for PAIN MDD 1, #60 Ref 0 Prescribed by: INOCENCIO MOELLER on 11/12/18 1152 Lorazepam (Ativan) 0.5 Mg Tablet, 0.5 MG PO PRN Q8HRS PRN for ANXIETY / AGITATION MDD 1, #60 Prescribed by: INOCENCIO MOELLER on 11/12/18 1152 INOCENCIO MOELLER MD Nov 12, 2018 11:56
--- NOTE | 2018-11-12 13:40 | RAD ---
Limited abdomen ultrasound HISTORY: Elevated LFT. FINDINGS: Study is technically limited due to bowel gas as well as difficulty with patient holding still and holding breath. Pancreas is poorly visualized. Inferior vena cava is seen. Liver measures 17.7 cm. Solid mass identified in the liver measuring 5.4 cm diameter with small cystic subcomponents. There is also a septated cyst or cystic mass in the liver measuring 5.9 cm long axis. These are within the left lobe of the liver. No significant biliary ductal dilatation. The gallbladder is not well seen, may be contracted. The patient was not fasting for the exam. Mild echogenicity in the gallbladder fossa, cannot exclude cholelithiasis. Right kidney measures 10.6 in longitudinal without hydronephrosis. There may be mild cortical thinning of the right kidney. IMPRESSION: 1. Technically limited exam. 2. Gallbladder is not well seen, could be due to contraction. Mild echogenicity in the gallbladder fossa, cannot exclude cholelithiasis. Consider follow-up ultrasound after fasting. 3. Solid left lobe liver mass measuring 5.4 cm. There is also a septated cyst or cystic lesion in the left lobe. Recommend multiphase CT or MRI of the liver for further evaluation. Electronically signed by: Bon Metcalf MD (11/12/2018 1:37 PM) [id number]
--- NOTE | 2018-11-12 13:55 | PDOC2 ---
CONSULT Date of Consult Date of Consult DATE: 11/12/18 TIME: 13:55 Reason for Consult Reason for Consult: Possible knee replacement Referring Physician Referring Physician: Dr. Barrett Identification/Chief Complaint Chief Complaint bilateral knee pain, other issues Source Source: Chart review, Patient History of Present Illness Reason for Visit: This 73-year-old man presented to the hospital with suicidal ideation, due to severe depression from losing his in June. He has severe knee osteoarthritis and has had that for many years. He admits to history of OCD, which sometimes interferes with his decision making for medical care. His primary care physician Dr. Rodriguez previously had him see an orthopedic surgeon at [facility] for possible knee replacement. Mr. Hardy said he is "scared to " of the prehabilitation and postop rehabilitation of knee replacement surgery as well as the potential complications, and did not want to proceed with knee replacement surgery when it was recommended previously. He uses braces for both of his knees, and has a walker for ambulation now. He lives alone now, after his passed. His friend Serge has been his DPOA. I noticed that he is now DNR, per the palliative care note. 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 He says he is no longer on any medication for his OCD but had been up until 15 years ago. His current home has 13 steps to get in and out. He does still drive. He is looking at other living situation such as assisted living per palliative care notes. The plan is for him to go to [facility] today. Dr. Barrett injected both knees yesterday. Past Medical History Past Medical History obsessive compulsive disorder, depression, brief suicidal ideation without plan per ER notes Cardiovascular: CHF, HTN Musculoskeletal: low back pain, Osteoarthritis Infectious disease: No pertinent hx ENT: Sincusitis Renal/: No pertinent hx Endocrine: No pertinent hx Past Surgical History Past Surgical History: No pertinent history Family History Family History: No Significant Social History Social History He lives in his own home in [facility] which has 13 stairs. He is going to [facility] today and has difficulty with the 13 stairs. No ALCOHOL: none Lives: Alone Current Medications Current Medications Current Medications Sodium Chloride 500 ml @ 500 mls/hr 1X ONCE IV Last administered on 11/09/18 19:45; Start 11/09/18 at 18:15; Stop 11/09/18 at 19:14; Status DC Lorazepam (Ativan Inj) 0.5 mg 1X ONCE IV ; Start 11/09/18 at 18:15; Stop 11/09/18 at 18:16; Status DC Potassium Chloride (Klor-Con) 20 meq 1X ONCE PO Last administered on 11/10/18 11:22; Start 11/10/18 at 11:00; Stop 11/10/18 at 11:02; Status DC Potassium Chloride/Dextrose/ Sod Cl 1,000 ml @ 100 mls/hr Q10H IV Last administered on 11/12/18 01:54; Start 11/10/18 at 11:00; Stop 11/12/18 at 08:49; Status DC Lorazepam (Ativan) 0.5 mg PRN Q8HRS PRN PO ANXIETY / AGITATION Last administered on 11/10/18 11:22; Start 11/10/18 at 11:00 Aspirin (Ecotrin) 325 mg DAILY PO Last administered on 11/12/18 08:14; Start 11/10/18 at 11:30 Chlorthalidone (Thalitone) 25 mg DAILY PO Last administered on 11/12/18 08:13; Start 11/10/18 at 11:30 Finasteride (Proscar) 5 mg DAILY PO Last administered on 11/12/18 08:14; Start 11/10/18 at 11:30 Acetaminophen/ Hydrocodone Bitart (Lortab 5/325) 1 tab PRN Q6HRS PRN PO PAIN Last administered on 11/11/18 13:31; Start 11/10/18 at 11:00 Levothyroxine Sodium (Synthroid) 75 mcg DAILY06 PO Last administered on 11/12/18 06:12; Start 11/10/18 at 11:30 Lisinopril (Prinivil) 20 mg DAILY PO Last administered on 11/12/18 08:14; Start 11/10/18 at 11:30 Tamsulosin HCl (Flomax) 0.4 mg DAILY PO Last administered on 11/11/18 09:05; Start 11/10/18 at 11:30; Stop 11/11/18 at 10:21; Status DC Acetaminophen (Tylenol) 650 mg BID PO Last administered on 11/12/18 08:14; Start 11/10/18 at 11:30 Atorvastatin Calcium (Lipitor) 80 mg QHS PO Last administered on 11/11/18 20:43; Start 11/10/18 at 21:00 Insulin Human Lispro (HumaLOG) 0-7 UNITS TIDWMEALS SQ Last administered on 11/12/18 12:55; Start 11/10/18 at 12:00 Dextrose (Dextrose 50%-Water Syringe) 12.5 gm PRN Q15MIN PRN IV SEE COMMENTS; Start 11/10/18 at 11:00 Quetiapine Fumarate (SEROquel) 25 mg HS PO Last administered on 11/11/18 20:43; Start 11/10/18 at 21:00 Enoxaparin Sodium (Lovenox Per Pharmacy Prophylaxis Dosing) 1 each PRN DAILY PRN MC SEE COMMENTS; Start 11/10/18 at 11:15; Stop 11/10/18 at 12:14; Status DC Enoxaparin Sodium (Lovenox 40mg Syringe) 40 mg Q24H SQ Last administered on 11/11/18 15:46; Start 11/10/18 at 16:00 Methylprednisolone Acetate (DEPO-Medrol 40MG VIAL) 40 mg 1X ONCE INJ Last administered on 11/10/18 13:30; Start 11/10/18 at 13:30; Stop 11/10/18 at 13:31; Status DC Methylprednisolone Acetate (DEPO-Medrol 40MG VIAL) 40 mg 1X ONCE INJ Last administered on 11/10/18 13:30; Start 11/10/18 at 13:30; Stop 11/10/18 at 13:31; Status DC Bupivacaine HCl (Sensorcaine-Mpf 0.25%) 10 ml 1X ONCE IJ Last administered on 11/10/18 13:30; Start 11/10/18 at 13:30; Stop 11/10/18 at 13:31; Status DC Insulin Human Lispro (HumaLOG) 4 units 1X ONCE SQ Last administered on 11/10/18 22:00; Start 11/10/18 at 22:00; Stop 11/10/18 at 22:01; Status DC Tamsulosin HCl (Flomax) 0.8 mg QHS PO Last administered on 11/11/18at 20:43; Start 11/11/18 at 21:00 Ascorbic Acid (Vitamin C) 500 mg BID PO Last administered on 11/12/18at 08:14; Start 11/11/18 at 11:00 Citalopram Hydrobromide (CeleXA) 10 mg DAILY PO Last administered on 11/12/18at 08:14; Start 11/11/18 at 12:30 Active Scripts Active Celexa (Citalopram Hydrobromide) 10 Mg Tablet 10 Mg PO DAILY MDD 1 Ativan (Lorazepam) 0.5 Mg Tablet 0.5 Mg PO PRN Q8HRS PRN MDD 1 Evans 5-325 Tablet (Acetaminophen/Hydrocodone Bitart) 1 Each Tablet 1 Tab PO PRN Q6HRS PRN MDD 1 Flomax (Tamsulosin Hcl) 0.4 Mg Cap.er.24h 0.4 Mg PO DAILY 14 Days Reported Centrum Complete Multivit Tab (Multivitamin/Iron/Folic Acid) 1 Each Tablet 1 Each PO DAILY Aspirin Ec (Aspirin) 325 Mg Tablet.dr 1 Tab PO DAILY Vitamin C With Lissette Hips (Ascorbic Acid) 1,000 Mg Tablet 1,000 Mg PO DAILY Calcium 600 + Vit D 400 Caplet (Calcium Carbonate/Vitamin D3) 1 Each Tablet 1 Each PO BID Arthritis Pain (Acetaminophen) 650 Mg Tablet.er 650 Mg PO BID Chlorthalidone (Chlorthalidone) 25 Mg Tablet 25 Mg PO DAILY Finasteride 5 Mg Tablet 5 Mg PO DAILY Levothyroxine Sodium 75 Mcg Tablet 75 Mcg PO DAILYAC Alendronate Sodium 35 Mg Tablet 35 Mg PO WEEKLY Lisinopril 20 Mg Tablet 20 Mg PO DAILY Atorvastatin Calcium 80 Mg Tablet 80 Mg PO HS Allergies Allergies: Coded Allergies: fluoxetine (Verified Allergy, Severe, shakes, 05/11/15) propofol (Verified Allergy, Intermediate, Inability to urinate, 11/10/18) bismuth subsalicylate (Verified Adverse Reaction, Mild, 11/10/18) Black Stools Physical Exam Physical Exam He was very emotional during the history and examination. He kept his eyes mostly closed while talking, opening them slightly and briefly. He has on glass is. He started to breathe rapidly when discussing his and became tearful several times. General: Alert, Cooperative HEENT: Atraumatic, Other (eyes closed when talking, tearful) Lungs: Normal air movement, Other (occasional bouts of tachypnea when discussing 's ) Heart: Regular rate Abdomen: Soft Extremities: Other (The RIGHT knee shows a mildly antalgic gait. There is varus alignment. No masses. No detectable effusion. Tenderness on the joint lines. Range of motion is 5-115 degrees. There is crepitus with range of motio n, and pain at the extremes of motion. The knee is stable to varus and valgus stress without subluxation or laxity. Muscle strength is slightly weak for the quadriceps 4+/5 which may be due to pain or avoidance, and does not seem neurogenic, and the muscle tone and bulk is slightly decreased. The hamstring strength is 5/5. The skin is normal with no scars, rashes, lesions or ulcers. Light touch sensation is intact. +3 LE pitting edema. Dorsalis pedis pulse is faint, but capillary refill is normal.The LEFT knee shows a mildly antalgic gait. There is varus alignment. No masses. No detectable effusion. Tenderness on the joint lines. Range of motion is 5-115 degrees. There is crepitus with range of motion, and pain at the extremes of motion. The knee is stable to varus and valgus stress without subluxation or laxity. Muscle strength is slightly weak for the quadriceps 4+/5 which may be due to pain or avoidance, and does not seem neurogenic, and the muscle tone and bulk is slightly decreased. The hamstring strength is 5/5. The skin is normal with no scars, rashes, lesions or ulcers. Light touch sensation is intact. +2-3 pitting edema bilateral LEs. Dorsalis pedis pulse is faint, but capillary refill is normal.) Skin: No significant lesion (multiple sunspots on arms) Neuro: Normal speech, Other (uses a walker and braces for ambulation) Psych/Mental Status: Other (tearful and emotional) Vitals VITALS Vital Signs Date Time Temp Pulse Resp B/P (MAP) Pulse Ox O2 Delivery O2 Flow Rate FiO2 11/12/18 11:00 98.0 75 17 126/56 (79) 98 Room Air 1.5 98.0 Labs Labs Laboratory Tests Test 11/10/18 16:41 11/10/18 20:55 11/11/18 04:15 11/11/18 07:21 Glucose (Fingerstick) 174 mg/dL (70-99) 252 mg/dL (70-99) 268 mg/dL (70-99) White Blood Count 14.0 x10^3/uL (4.0-11.0) Red Blood Count 3.65 x10^6/uL (4.30-5.70) Hemoglobin 11.4 g/dL (13.0-17.5) Hematocrit 33.7 % (39.0-53.0) Mean Corpuscular Volume 92 fL (79-100) Mean Corpuscular Hemoglobin 31 pg (25-35) Mean Corpuscular Hemoglobin Concent 34 g/dL (31-37) Red Cell Distribution Width 14.9 % (11.5-14.5) Platelet Count 333 x10^3/uL (140-400) Neutrophils (%) (Auto) 93 % (31-73) Lymphocytes (%) (Auto) 4 % (24-48) Monocytes (%) (Auto) 4 % (0-9) Eosinophils (%) (Auto) 0 % (0-3) Basophils (%) (Auto) 0 % (0-3) Neutrophils # (Auto) 13.0 x10^3uL (1.8-7.7) Lymphocytes # (Auto) 0.5 x10^3/uL (1.0-4.8) Monocytes # (Auto) 0.5 x10^3/uL (0.0-1.1) Eosinophils # (Auto) 0.0 x10^3/uL (0.0-0.7) Basophils # (Auto) 0.0 x10^3/uL (0.0-0.2) Segmented Neutrophils % 88 % (35-66) Band Neutrophils % 2 % (0-9) Lymphocytes % 7 % (24-48) Monocytes % 3 % (0-10) Hypersegmented Neutrophils Present Platelet Estimate Adequate (ADEQUATE) Sodium Level 142 mmol/L (136-145) Potassium Level 4.3 mmol/L (3.5-5.1) Chloride Level 105 mmol/L (98-107) Carbon Dioxide Level 23 mmol/L (21-32) Anion Gap 14 (6-14) Blood Urea Nitrogen 35 mg/dL (8-26) Creatinine 1.2 mg/dL (0.7-1.3) Estimated GFR (Cockcroft-Gault) 59.0 BUN/Creatinine Ratio 29 (6-20) Glucose Level 248 mg/dL (70-99) Calcium Level 9.0 mg/dL (8.5-10.1) Total Bilirubin 0.4 mg/dL (0.2-1.0) Aspartate Amino Transf (AST/SGOT) 89 U/L (15-37) Alanine Aminotransferase (ALT/SGPT) 165 U/L (16-63) Alkaline Phosphatase 396 U/L (46-116) Total Protein 7.0 g/dL (6.4-8.2) Albumin 2.2 g/dL (3.4-5.0) Albumin/Globulin Ratio 0.5 (1.0-1.7) Thyroid Stimulating Hormone (TSH) 0.484 uIU/mL (0.358-3.74) Test 11/11/18 11:52 11/11/18 16:30 11/11/18 19:34 11/12/18 07:07 Glucose (Fingerstick) 204 mg/dL (70-99) 232 mg/dL (70-99) 213 mg/dL (70-99) 218 mg/dL (70-99) Test 11/12/18 11:16 Glucose (Fingerstick) 157 mg/dL (70-99) Laboratory Tests Test 11/11/18 16:30 11/11/18 19:34 11/12/18 07:07 11/12/18 11:16 Glucose (Fingerstick) 232 mg/dL (70-99) 213 mg/dL (70-99) 218 mg/dL (70-99) 157 mg/dL (70-99) Images Images Report reviewed, images independently reviewed. Kellgren Krish grade 4 osteoarthritis of both knees, varus malalignment and [id number] contact medially with bone deformity of bilateral knees. [facility] [address] [place] [address] IMAGING REPORT Signed PATIENT: KALI HARDY ACCOUNT: [id number] : 1945 LOCATION: [address] [place] [address] AGE: 73 SEX: M EXAM STATUS: ADM IN ORD. PHYSICIAN: EDDIE BARRETT MD REASON: painful DJD of both knees PROCEDURE: KNEE STANDING BILAT AP AP standing view of both knees Clinical indications: Painful DJD of both knees Right knee: Severe joint space narrowing and prominent spurring and subchondral sclerosis of the medial tibiofemoral joint compartment is seen. There is moderate joint space narrowing and spurring of the lateral tibial femoral joint compartment with mild subchondral sclerosis. There is a genu varus deformity. No acute fracture or dislocation or lytic process is seen. Left knee: There is severe joint space narrowing with prominent spurring and subchondral sclerosis of the medial tibial femoral joint compartment. There is moderate joint space narrowing with moderate spurring and mild subchondral sclerosis of the lateral tibial femoral joint compartment. Loose bodies are evident just lateral to the superior pole of the patella. Genu varus deformity is evident. No acute fracture or dislocation or lytic process is seen IMPRESSION: Primary degenerative osteoarthritis of the medial and lateral tibial femoral joint compartments of both knees especially involving the medial compartment of both knees with [id number] interface. Electronically signed by: Kali Canela MD (11/10/2018 4:54 PM) [id number] DICTATED and SIGNED BY: KALI CANELA MD DATE: 11/10/18 1654 Assessment/Plan Assessment/Plan Severe right knee osteoarthritis Other issues as above Recent knee cortisone injections precludes knee arthroplasty surgery in the next 3 months. His emotional state currently would be concerning for postoperative difficulties, and he is reluctant to have any surgery. Total knee replacement was recommended to him previously by a different orthopedic surgeon and he did not want to proceed. I would like to see him in the office in 6 weeks, and we can discuss knee replacement surgery further versus nonoperative treatment AYANNA CANSECO MD Nov 12, 2018 13:55
--- NOTE | 2018-11-12 13:56 | NUR ---
SW following pt. Orders faxed to [facility] and pt will transport via central transport at 1400. Pt and pt's Serge GALVEZ notified of plan and agreeable. KIM ISRAEL.
--- NOTE | 2018-11-12 15:12 | NUR ---
Discharge Note: KALI WELCH Discharge instructions and discharge home medications reviewed with [facility] and a copy given. All questions have been answered and understanding verbalized. Report given to Verna ISRAEL. The following instructions and handouts were given: discharge instructions, new prescriptions, education and follow up recommendations. Discontinued lines and drains: Peripheral IV discontinued intact. Patient discharged to [facility] with [facility] Transport Personnel via Wheelchair
== END 2018-11-12 15:14 | DRG 682 ==
LOC: ER 17:36 → 5 NORTH 19:20
PROVIDERS: ADMIT Internal Medicine; ATTEND Internal Medicine
PROC: 0HBRXZZ Excision of Toe Nail, External Approach (ICD-10-PCS; principal; 2018-11-11)
PROC: 0HBRXZZ Excision of Toe Nail, External Approach (ICD-10-PCS; 2018-11-11)
PROC: 0HBRXZZ Excision of Toe Nail, External Approach (ICD-10-PCS; 2018-11-11)
PROC: 0HBRXZZ Excision of Toe Nail, External Approach (ICD-10-PCS; 2018-11-11)
PROC: 0HBRXZZ Excision of Toe Nail, External Approach (ICD-10-PCS; 2018-11-11)
PROC: 0HBRXZZ Excision of Toe Nail, External Approach (ICD-10-PCS; 2018-11-11)
PROC: 0HBRXZZ Excision of Toe Nail, External Approach (ICD-10-PCS; 2018-11-11)
PROC: 0HBRXZZ Excision of Toe Nail, External Approach (ICD-10-PCS; 2018-11-11)
PROC: 0HBRXZZ Excision of Toe Nail, External Approach (ICD-10-PCS; 2018-11-11)
PROC: 0HBRXZZ Excision of Toe Nail, External Approach (ICD-10-PCS; 2018-11-11)
PROC: 3E0U33Z Introduction of Anti-inflammatory into Joints, Percutaneous Approach (ICD-10-PCS; 2018-11-11)
PROC: 3E0U3BZ Introduction of Anesthetic Agent into Joints, Percutaneous Approach (ICD-10-PCS; 2018-11-11)
DX: N17.0 Acute kidney failure with tubular necrosis (principal); E43 Unspecified severe protein-calorie malnutrition; I50.32 Chronic diastolic (congestive) heart failure; R45.851 Suicidal ideations; M17.0 Bilateral primary osteoarthritis of knee; E86.0 Dehydration; M19.90 Unspecified osteoarthritis, unspecified site; E87.6 Hypokalemia; F32.9 Major depressive disorder, single episode, unspecified; F43.22 Adjustment disorder with anxiety; Z88.8 Allergy status to other drugs, medicaments and biological substances; B35.1 Tinea unguium; E78.00 Pure hypercholesterolemia, unspecified; F42.9 Obsessive-compulsive disorder, unspecified; G89.29 Other chronic pain; I11.0 Hypertensive heart disease with heart failure; I73.9 Peripheral vascular disease, unspecified; I89.0 Lymphedema, not elsewhere classified; L60.1 Onycholysis; L60.2 Onychogryphosis; L85.3 Xerosis cutis; Z96.659 Presence of unspecified artificial knee joint; M21.00 Valgus deformity, not elsewhere classified, unspecified site; M21.169 Varus deformity, not elsewhere classified, unspecified knee; M81.0 Age-related osteoporosis without current pathological fracture; R62.7 Adult failure to thrive; Z51.5 Encounter for palliative care; Z66 Do not resuscitate; Z85.820 Personal history of malignant melanoma of skin
CPT/HCPCS: 36415; 73565; 76705; 80053; 80307; 80329; 81001; 82962; 83735; 84443; 84484; 85007; 85025; 86705; 86709; 86803; 87086; 87340; 93005; G0480; J1030; J1650; J1815; J3490; J7040; 97116; 99285-25